=== PATIENT | female | born 1940 | race Caucasian/White ===

== ENCOUNTER 2017-05-09 14:21 | Emergency (ER) | payer OTHER, MEDICARE ==
[~2017-05-09] VITALS: Ht 170.2 cm; Wt 87.7 kg
[~2017-05-09 14:21] MED LIST: AMOX TR-K CLV PO; BACT800T5 PO; BUPR300T34 PO; COUM1TAB14 PO; COUM6TAB PO; DETR4CAP PO; DULC10SU2 PR; ESTRODERM PO; HYDR25TAB PO; KLOR1TAB77 PO; LEVO100T5 PO; METO50TA7 PO; SENO8.6T5 PO; SILV1CRE60 TOP; TYLE325T5 PO; VERA240T16 PO; WELLTAB40 PO
[2017-05-09] MEDS ORDERED: HYDR25TA6 PO (14:41)
[2017-05-09 16:33] VITALS: BP 143/69
--- NOTE | 2017-05-09 16:40 | REP ---
RIGHT RIB SERIES: Four views of the right ribs are performed and demonstrate no fracture or bone lesion. An accompanying view of the chest demonstrates no acute infiltrate, pleural effusion or pneumothorax. Two small metallic anchors are seen in the right proximal right humerus. Cardiomediastinal silhouette is unremarkable. IMPRESSION: No evidence of right rib fracture. Signed by Max Mckeon MD 05/10/2017 05:11 P
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
[2017-07-09] MEDS ORDERED: DITR1TAB2 PO (12:59)
[2017-07-09] MEDS ORDERED: POTA1TAB14 PO (12:59)
[2017-07-09] MEDS ORDERED: HYDR25TAB PO (12:59)
[2017-07-09] MEDS ORDERED: SENN8.6C PO (12:59)
[2017-07-09] MEDS ORDERED: LIPI20TA PO (13:01)
== END 2017-05-09 16:39 | disposition home or self-care (01) ==
LOC: M ED 16:28
DX: S20.211A Contusion of right front wall of thorax, initial encounter (principal); V43.52XA Car driver injured in collision with other type car in traffic accident, initial encounter; Y92.410 Unspecified street and highway as the place of occurrence of the external cause; Y93.9 Activity, unspecified; Y99.8 Other external cause status; I10 Essential (primary) hypertension; E03.9 Hypothyroidism, unspecified; F32.9 Major depressive disorder, single episode, unspecified; Z87.442 Personal history of urinary calculi; Z87.891 Personal history of nicotine dependence; Z79.899 Other long term (current) drug therapy

== ENCOUNTER 2017-07-16 11:41 | Outpatient (CLI) | payer MEDICARE, OTHER ==
[~2017-07-16] VITALS: Ht 170.2 cm; Wt 83.9 kg
[~2017-07-16 11:41] MED LIST changes: +DITR1TAB2 PO; +HYDR25TA6 PO; +LIPI20TA PO; +POTA1TAB14 PO; +SENN8.6C PO
[2017-07-16] MEDS ORDERED: PROPOFOL 200 MG/20 ML VIAL As Ordered ONE ×3 (11:43→12:39)
[2017-07-16] MEDS ORDERED: NS 1,000 ML IV ONE (12:00)
[2017-07-16] MEDS ORDERED: LIDOCAINE 2% INJ 100 MG/5 ML SDV (FOR ANES.) As Ordered ONE (13:10)
--- NOTE | 2017-07-16 13:26 | ROOR ---
Patient Name: Sarah Trammell Procedure Date: 07/16/2017 12:59 PM Date of : 1940 Age: 77 Room: [facility] Gender: Female Note Status: Finalized Procedure: Total Colonoscopy to Cecum + Cold Snare Polypectomy + Hemoclip Indications: Positive Cologuard test Providers: Glen Gambino MD Referring MD: Enrique Arriaga MD Requesting Provider: Medicines: Monitored Anesthesia Care Complications: No immediate complications. Procedure: Pre-Anesthesia Assessment: - The heart rate, respiratory rate, oxygen saturations, blood pressure, adequacy of pulmonary ventilation, and response to care were monitored throughout the procedure. The Colonoscope was introduced through the anus and advanced to the cecum, identified by appendiceal orifice and ileocecal valve. The colonoscopy was performed without difficulty. The patient tolerated the procedure well. The quality of the bowel preparation was excellent. Findings: The perianal and digital rectal examinations were normal. Non-bleeding internal hemorrhoids were found during retroflexion. The hemorrhoids were small and Grade I (internal hemorrhoids that do not prolapse). Multiple small and large-mouthed diverticula were found in the recto-sigmoid colon, sigmoid colon and descending colon. Two sessile polyps were found in the descending colon. The polyps were small in size. These polyps were removed with a cold snare. Resection and retrieval were complete. A medium polyp was found at 60 cm proximal to the anus. The polyp was sessile. The polyp was removed with a cold snare. Resection and retrieval were complete. To prevent bleeding after the polypectomy, one hemostatic clip was successfully placed (MR conditional). There was no bleeding at the end of the procedure. The exam was otherwise without abnormality on direct and retroflexion views. Impression: - Non-bleeding internal hemorrhoids. - Diverticulosis in the recto-sigmoid colon, in the sigmoid colon and in the descending colon. - Two small polyps in the descending colon, removed with a cold snare. Resected and retrieved. - One medium polyp at 60 cm proximal to the anus, removed with a cold snare. Resected and retrieved. Clip (MR conditional) was placed. - The examination was otherwise normal on direct and retroflexion views. - The exam was otherwise normal to the cecum. Recommendation: - Patient has a contact number available for emergencies. The signs and symptoms of potential delayed complications were discussed with the patient. Return to normal activities tomorrow. Written discharge instructions were provided to the patient. - High fiber diet. - Discharge patient to home. - Continue present medications. - Await pathology results. - Telephone GI clinic for pathology results in 1 week. - Return to referring physician. - Repeat colonoscopy for surveillance based on pathology results. - Check Portal Online for Path Results.([email or web address] - The findings and recommendations were discussed with the patient's family. Glen Gambino MD Glen Gambino MD 07/16/2017 1:26:29 PM This report has been signed electronically. Number of Addenda: 0 Note Initiated On: 07/16/2017 12:59 PM Estimated Blood Loss: Estimated blood loss: none.
[2017-07-16 13:40] VITALS: BP 154/71
== END 2017-07-16 13:55 | disposition home or self-care (01) ==
LOC: M OPP 11:41
PROVIDERS: ATTEND Internal Medicine Gastroenterology
DX: D12.4 Benign neoplasm of descending colon (principal); K64.0 First degree hemorrhoids; K57.30 Diverticulosis of large intestine without perforation or abscess without bleeding; I10 Essential (primary) hypertension; E78.00 Pure hypercholesterolemia, unspecified; E03.9 Hypothyroidism, unspecified; M19.90 Unspecified osteoarthritis, unspecified site; F41.9 Anxiety disorder, unspecified; F32.9 Major depressive disorder, single episode, unspecified; R00.0 Tachycardia, unspecified; Z79.899 Other long term (current) drug therapy; Z87.891 Personal history of nicotine dependence; Z87.410 Personal history of cervical dysplasia

== ENCOUNTER → 2018-04-12 | Outpatient (REF) | payer MEDICARE, OTHER | LOC: M LAB REF 15:34 | DX: L03.039 Cellulitis of unspecified toe (principal) | CPT/HCPCS: 87186 ==

== ENCOUNTER 2018-05-15 10:32 | Day surgery (SDC) | payer MEDICARE, OTHER ==
[~2018-05-15 10:32] MED LIST changes: +ACETAMINOPHEN 325 MG TAB PO; -AMOX TR-K CLV PO; -BACT800T5 PO; +BSS with VANC/TOB/EPI for EYE CASES IR; -BUPR300T34 PO; -COUM1TAB14 PO; -COUM6TAB PO; +CYCLOPENTOLATE 2% OPHTH SOLN 2ML BTL OS; -DETR4CAP PO; -DITR1TAB2 PO; -DULC10SU2 PR; -ESTRODERM PO; +HEALON DUET (HEALON 10MG/ML 0.55ML & HEALON ENDOCOAT 30MG/ML 0.85ML) As Ordered; -HYDR25TA6 PO; -HYDR25TAB PO; -KLOR1TAB77 PO; -LEVO100T5 PO; +LIDOCAINE 1% SDV 5 ML VIAL As Ordered; +LIDOCAINE 3.5 % 1ML OPHTH TOPICAL GEL OU; -LIPI20TA PO; -METO50TA7 PO; +MOXIFLOXACIN IN BSS 0.25MG/0.25ML INTRACAMERAL INJ (OR EYE ONLY)(J2280) As Ordered; +OFLOXACIN 0.3 % (OCUFLOX) OPTH SOL 5ML OS; +PHENYLEPHRINE 2.5% OPHTH SOL 2ML OS; +PHENYLEPHRINE HCL 10 % OPHTH. SOL 5ML OD; +PHENYLEPHRINE HCL 10 % OPHTH. SOL 5ML OS; -POTA1TAB14 PO; +POVIDONE-IODINE 5% OPHTH PREP SOL 30ML As Ordered; -SENN8.6C PO; -SENO8.6T5 PO; -SILV1CRE60 TOP; +TRIAMCINOLONE PRES FR 40 MG/ML 1ML(TRIESENCE)(OR EYE ONLY)(J3300 PER 1MG) As Ordered; +TROPICAMIDE 1% OPHTH SOLN 2ML OS; -TYLE325T5 PO; -VERA240T16 PO; -WELLTAB40 PO
[2018-05-15] MEDS: PHENYLEPHRINE 2.5% OPHTH SOL 2ML OD (11:23)
[2018-05-15] MEDS: CYCLOPENTOLATE 2% OPHTH SOLN 2ML BTL OD (11:23)
[2018-05-15] MEDS: OFLOXACIN 0.3 % (OCUFLOX) OPTH SOL 5ML OD (11:23)
[2018-05-15] MEDS: TROPICAMIDE 1% OPHTH SOLN 2ML OD (11:23)
[2018-05-15] MEDS: LIDOCAINE 3.5 % 1ML OPHTH TOPICAL GEL OU (11:23)
[2018-05-15] MEDS ORDERED: MIDAZOLAM INJ 2 MG/2 ML VIAL (J2250) As Ordered (12:25)
[2018-05-15] MEDS ORDERED: fentaNYL 100 MCG/2 ML INJECTION (J3010) As Ordered (12:25)
[2018-05-15] MEDS ORDERED: AcetaZOLAMIDE 500 MG ER CAP As Ordered (13:03)
[2018-05-15] MEDS: AcetaZOLAMIDE 500 MG ER CAP PO (13:05)
[2018-05-15] MEDS ORDERED: TRIMETHOBENZAMIDE 300 MG CAP PO (13:15)
== END 2018-05-15 13:24 | disposition home or self-care (01) ==
LOC: M SDC 10:32
DX: H25.9 Unspecified age-related cataract (principal); I10 Essential (primary) hypertension; E78.5 Hyperlipidemia, unspecified; E03.9 Hypothyroidism, unspecified; Z79.899 Other long term (current) drug therapy; F41.9 Anxiety disorder, unspecified; F43.29 Adjustment disorder with other symptoms
CPT/HCPCS: 66984

== ENCOUNTER 2018-06-05 09:23 | Day surgery (SDC) | payer MEDICARE, OTHER ==
[2018-06-05] MEDS: TRIAMCINOLONE PRES FR 40 MG/ML 1ML(TRIESENCE)(OR EYE ONLY)(J3300 PER 1MG) As Ordered (06:48)
[2018-06-05] MEDS: BSS with VANC/TOB/EPI for EYE CASES IR (07:00)
[~2018-06-05 09:23] MED LIST changes: -BSS with VANC/TOB/EPI for EYE CASES IR; -CYCLOPENTOLATE 2% OPHTH SOLN 2ML BTL OS; -HEALON DUET (HEALON 10MG/ML 0.55ML & HEALON ENDOCOAT 30MG/ML 0.85ML) As Ordered; -LIDOCAINE 1% SDV 5 ML VIAL As Ordered; -LIDOCAINE 3.5 % 1ML OPHTH TOPICAL GEL OU; -MOXIFLOXACIN IN BSS 0.25MG/0.25ML INTRACAMERAL INJ (OR EYE ONLY)(J2280) As Ordered; -OFLOXACIN 0.3 % (OCUFLOX) OPTH SOL 5ML OS; -PHENYLEPHRINE 2.5% OPHTH SOL 2ML OS; -PHENYLEPHRINE HCL 10 % OPHTH. SOL 5ML OD; -POVIDONE-IODINE 5% OPHTH PREP SOL 30ML As Ordered; -TRIAMCINOLONE PRES FR 40 MG/ML 1ML(TRIESENCE)(OR EYE ONLY)(J3300 PER 1MG) As Ordered; -TROPICAMIDE 1% OPHTH SOLN 2ML OS
[2018-06-05] MEDS: PHENYLEPHRINE 2.5% OPHTH SOL 2ML OS (10:15)
[2018-06-05] MEDS: TROPICAMIDE 1% OPHTH SOLN 2ML OS (10:16)
[2018-06-05] MEDS: LIDOCAINE 3.5 % 1ML OPHTH TOPICAL GEL OU (10:16)
[2018-06-05] MEDS: CYCLOPENTOLATE 2% OPHTH SOLN 2ML BTL OS (10:16)
[2018-06-05] MEDS: OFLOXACIN 0.3 % (OCUFLOX) OPTH SOL 5ML OS (10:16)
[2018-06-05] MEDS ORDERED: MIDAZOLAM INJ 2 MG/2 ML VIAL (J2250) As Ordered (11:12)
[2018-06-05] MEDS ORDERED: fentaNYL 100 MCG/2 ML INJECTION (J3010) As Ordered (11:12)
[2018-06-05] MEDS: POVIDONE-IODINE 5% OPHTH PREP SOL 30ML As Ordered (11:15)
[2018-06-05] MEDS: HEALON DUET (HEALON 10MG/ML 0.55ML & HEALON ENDOCOAT 30MG/ML 0.85ML) As Ordered (11:15)
[2018-06-05] MEDS: LIDOCAINE 1% SDV 5 ML VIAL As Ordered (11:15)
[2018-06-05] MEDS: MOXIFLOXACIN IN BSS 0.25MG/0.25ML INTRACAMERAL INJ (OR EYE ONLY)(J2280) As Ordered (11:16)
[2018-06-05] MEDS: AcetaZOLAMIDE 500 MG ER CAP PO (12:00)
[2018-06-05] MEDS ORDERED: TRIMETHOBENZAMIDE 300 MG CAP PO (12:00)
== END 2018-06-05 12:10 | disposition home or self-care (01) ==
LOC: M SDC 09:23
DX: H25.9 Unspecified age-related cataract (principal); I10 Essential (primary) hypertension; E78.5 Hyperlipidemia, unspecified; E03.9 Hypothyroidism, unspecified; Z79.899 Other long term (current) drug therapy; K59.00 Constipation, unspecified; M54.2 Cervicalgia; F32.9 Major depressive disorder, single episode, unspecified; F41.9 Anxiety disorder, unspecified
CPT/HCPCS: 66984

== ENCOUNTER → 2018-10-17 | Outpatient (REF) | payer MEDICARE, OTHER | LOC: M LAB REF 14:43 | DX: L03.032 Cellulitis of left toe (principal) ==

== ENCOUNTER → 2018-10-17 | Outpatient (CLI) | payer MEDICARE, OTHER ==
[2018-10-17 13:30] LABS: BASO # 0.1 10^3/uL (0.0-0.2); BASO % 0.8 % (0.0-1.0); EOS # 0.4 10^3/uL (0.0-0.50); EOS % 4.9 % (0.0-3.0); HEMOGLOBIN 12.9 g/dl (12.0-15.5); LYMPH # 2.1 10^3/uL (1.5-4.5); MEAN CORPUSCULAR HEMOGLOBIN 31.4 pg (27.0-33.0); MEAN CORPUSCULAR HGB CONC 33.1 g/dl (32.0-36.5); MEAN CORPUSCULAR VOLUME 94.9 fl (80.0-96.0); MONO # 0.6 10^3/uL (0.0-0.8); MONO % 8.3 % (0.0-5.0); PLATELET COUNT, AUTOMATED 199 10^3/uL (150-450); RED BLOOD COUNT 4.11 10^6/uL (4.00-5.40); RED CELL DISTRIBUTION WIDTH 12.9 % (11.5-14.5); WHITE BLOOD COUNT 7.2 10^3/uL (4.0-10.0)
[2018-10-17 14:10] LABS: ALBUMIN 3.5 GM/DL (3.2-5.2); ALBUMIN/GLOBULIN RATIO 0.71 (1.00-1.93); ALKALINE PHOSPHATASE 105 U/L (45-117); ALT/SGPT 20 U/L (12-78); ANION GAP 7 MEQ/L (8-16); AST/SGOT 17 U/L (7-37); BILIRUBIN,TOTAL 0.5 MG/DL (0.2-1.0); BLOOD UREA NITROGEN 17 MG/DL (7-18); CARBON DIOXIDE LEVEL 31 MEQ/L (21-32); CHLORIDE LEVEL 103 MEQ/L (98-107); CREATININE FOR GFR 1.45 MG/DL (0.55-1.30); GLOMERULAR FILTRATION RATE 37.4 (>39); GLUCOSE, FASTING 90 MG/DL (70-100); POTASSIUM SERUM 3.7 MEQ/L (3.5-5.1); SODIUM LEVEL 141 MEQ/L (136-145); TOTAL PROTEIN 8.4 GM/DL (6.4-8.2)
== END ==
LOC: M LAB 12:47
DX: Z01.818 Encounter for other preprocedural examination (principal); M79.675 Pain in left toe(s); L97.522 Non-pressure chronic ulcer of other part of left foot with fat layer exposed; M20.40 Other hammer toe(s) (acquired), unspecified foot; L03.032 Cellulitis of left toe
CPT/HCPCS: 71046

== ENCOUNTER 2018-10-22 14:11 | Day surgery (SDC) | payer MEDICARE, OTHER ==
[2018-10-22] MEDS: LR 1,000 ML IV (14:48)
[2018-10-22] MEDS: ROPIvacaine 0.5% 30 ML INJECTION (J2795 PER 1MG) As Ordered (17:09)
[2018-10-22] MEDS: GENTAMICIN SULF INJ 80MG/2ML VIAL (J1580) As Ordered (17:13)
[2018-10-22] MEDS ORDERED: LIDOCAINE 2% INJ 100 MG/5 ML SDV (FOR ANES.) As Ordered (17:34)
[2018-10-22] MEDS ORDERED: ONDANSETRON 4MG/2ML VIAL (J2405) As Ordered (17:34)
[2018-10-22] MEDS ORDERED: MIDAZOLAM INJ 2 MG/2 ML VIAL (J2250) As Ordered (17:34)
[2018-10-22] MEDS ORDERED: fentaNYL 100 MCG/2 ML INJECTION (J3010) As Ordered (17:34)
[2018-10-22] MEDS ORDERED: PROPOFOL 200 MG/20 ML VIAL As Ordered (17:35)
== END 2018-10-22 18:30 | disposition home or self-care (01) ==
LOC: M SDC 18:30
DX: M86.672 Other chronic osteomyelitis, left ankle and foot (principal); M79.675 Pain in left toe(s); I10 Essential (primary) hypertension; E03.9 Hypothyroidism, unspecified; F32.9 Major depressive disorder, single episode, unspecified; Z79.899 Other long term (current) drug therapy; Z87.891 Personal history of nicotine dependence; E78.5 Hyperlipidemia, unspecified; F41.9 Anxiety disorder, unspecified
CPT/HCPCS: 28825

== ENCOUNTER 2018-12-01 12:57 | Emergency (ER) | payer MEDICARE, OTHER ==
[~2018-12-01] VITALS: Ht 170.2 cm; Wt 79.0 kg
[~2018-12-01 12:57] MED LIST changes: -ACETAMINOPHEN 325 MG TAB PO; +AMOX TR-K CLV PO; +AUGM875T28 PO; +BACT800T5 PO; +BUPR300T34 PO; +COUM1TAB14 PO; +COUM6TAB PO; +DETR4CAP PO; +DITR1TAB2 PO; +DULC10SU2 PR; +ESTRODERM PO; +HYDR25TA6 PO; +HYDR25TAB PO; +KLOR1TAB77 PO; +LEVO100T5 PO; +LIPI20TA PO; +METO50TA7 PO; +OXYB15TA PO; -PHENYLEPHRINE HCL 10 % OPHTH. SOL 5ML OS; +POTA1TAB14 PO; +SENN8.6C PO; +SENO8.6T5 PO; +SILV1CRE60 TOP; +TYLE325T5 PO; +VERA240T16 PO; +WELLTAB40 PO
[2018-12-01] MEDS: MORPHINE 2 MG/ML 1ML SYRINGE (J2270) IV PRN ×2 (13:32→14:46)
[2018-12-01] MEDS ORDERED: ADACEL/BOOSTRIX VACCINE (DIPHTH/PERTUSS/ACELL/TETANUS)0.5ML SYR (90715) IM ONE (13:45)
--- NOTE | 2018-12-01 13:52 | REP ---
CT brain without contrast: History: Trauma. Comparison study: December 23, 2010. Findings: Digital preliminary unit director radiograph shows an intact bony calvarium. Bone window settings show no visible skull fracture or bony destructive lesion. Paranasal sinuses are clear. Vascular calcification is noted in the carotids and vertebral arteries. There is a right posterior parietal scalp hematoma with soft tissue irregularity suggesting laceration. On soft tissue window settings, there is an acute subdural collection at the level of the scalp hematoma in the right high parietal region. This measures 10 mm in greatest thickness by 6.5 cm in anteroposterior dimension. This is associated with a small quantity of subarachnoid hemorrhage extending into the sylvian fissure on the right. There is some subarachnoid hemorrhage in the occipital lobe on the right as well. No parenchymal hematoma is seen. No infarct is seen. Small vessel atherosclerotic changes are noted. Impression: Small right parietal acute subdural hematoma associated with a small quantity of subarachnoid blood in the right occipital lobe and along the Sylvian fissure on the right side. No skull fracture is seen. There is a right scalp hematoma/laceration. Vascular calcification, diffuse atrophy and small vessel changes are also noted. Findings were discussed at the time of this dictation by telephone with Dr. Cagle. Electronically Signed by Eliezer Lange MD 12/01/2018 03:50 P
--- NOTE | 2018-12-01 13:53 | REP ---
CT study of the cervical spine without contrast: History: Trauma. Technique: Helical scanning is acquired and overlapping 2 mm high resolution axial images were generated and reviewed at bone and soft tissue window settings. Coronal and sagittal multiplanar re-formations images are generated. CT findings: There is no evidence of cervical spine element fracture. No skull base fracture is seen. Cervical vertebral body heights are preserved. Alignment is normal. Facet joints are normally aligned bilaterally at each cervical level on multiplanar re-formations images. There is no evidence of intraspinal or paraspinal hematoma. No extra vertebral abnormality is seen. There is straightening of the normal cervical lordosis. Moderate degenerative spondylosis changes are noted throughout the cervical spine. Degenerative disc changes are most pronounced at C3-4, C5-6 and C6-7. Vascular calcification is noted in the carotid arteries bilaterally. Impression: Advanced degenerative spondylosis changes. Otherwise negative CT study of the cervical spine without contrast. No fracture seen. Electronically Signed by Eliezer Lange MD 12/01/2018 03:53 P
[2018-12-01 14:16] LABS: HEMATOCRIT 33.7 % (36.0-47.0); HEMOGLOBIN 11.1 g/dl (12.0-15.5); MEAN CORPUSCULAR HEMOGLOBIN 30.2 pg (27.0-33.0); MEAN CORPUSCULAR HGB CONC 32.9 g/dl (32.0-36.5); MEAN CORPUSCULAR VOLUME 91.6 fl (80.0-96.0); PLATELET COUNT, AUTOMATED 163 10^3/uL (150-450); RED BLOOD COUNT 3.68 10^6/uL (4.00-5.40); WHITE BLOOD COUNT 8.1 10^3/uL (4.0-10.0)
[2018-12-01 14:25] LABS: INR 1.21; PROTHROMBIN TIME 15.5 SECONDS (12.1-14.4)
--- NOTE | 2018-12-01 14:34 | REP ---
Left hand series: Four views. History: Trauma. Findings: Four views of the left hand demonstrate diffuse osteopenia. There is chondrocalcinosis. There is diastases between the navicula and the lunate indicating degeneration of the navicular lunate ligament. There is osteoarthritis at the first carpometacarpal, navicular multangular, and first IP joint articulations. There is a flexion deformity at the DIP joint of the small finger. Osteoarthritic spurring is seen at the DIP joints of the index and long fingers as well. Impression: No acute fracture seen. Osteoarthritic changes, degenerative changes, and flexion deformity at the fifth finger DIP joint. Electronically Signed by Eliezer Lange MD 12/01/2018 02:26 P
[2018-12-01 14:54] VITALS: BP 155/72
[2018-12-01 14:56] LABS: ALBUMIN 3.1 GM/DL (3.2-5.2); BILIRUBIN,TOTAL 0.6 MG/DL (0.2-1.0); CALCIUM LEVEL 8.8 MG/DL (8.8-10.2); CREATININE FOR GFR 1.2 MG/DL (0.55-1.30); GLOMERULAR FILTRATION RATE 46.5 (>39); POTASSIUM SERUM 3.3 MEQ/L (3.5-5.1); TOTAL PROTEIN 7.4 GM/DL (6.4-8.2)
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
--- NOTE | 2018-12-02 06:08 | REP ---
Portable chest x-ray: Sitting AP view. History: Preoperative exam. Comparison study: October 17, 2018. Findings: There are orthopedic anchors in the right humeral head. The lungs are slightly hyperinflated consistent with some degree of COPD but clear. Pleural angles are sharp. Heart size normal. The thoracic aorta is calcific and somewhat tortuous. Pulmonary vasculature is not increased. Impression: No active disease. Electronically Signed by Eliezer Lange MD 12/02/2018 08:10 A
== END 2018-12-01 14:57 | disposition short-term general hospital (02) ==
LOC: M ED 12:57 → EDBD 12:57 → M ED 14:57
DX: I60.9 Nontraumatic subarachnoid hemorrhage, unspecified (principal); I62.00 Nontraumatic subdural hemorrhage, unspecified; W10.8XXA Fall (on) (from) other stairs and steps, initial encounter; Y92.018 Other place in single-family (private) house as the place of occurrence of the external cause; I12.9 Hypertensive chronic kidney disease with stage 1 through stage 4 chronic kidney disease, or unspecified chronic kidney disease; N18.9 Chronic kidney disease, unspecified; E07.9 Disorder of thyroid, unspecified; F33.9 Major depressive disorder, recurrent, unspecified; Z79.899 Other long term (current) drug therapy; Z79.890 Hormone replacement therapy; Z87.891 Personal history of nicotine dependence
CPT/HCPCS: 70450; 71045; 72125; 73130; 73502; 73590; 80053; 85027; 85610; 86850; 86900; 86901; 90471; 90715; 96374; 96376; 99284; J2270

== ENCOUNTER 2019-01-19 22:25 | Emergency (ER) | payer MEDICARE, OTHER ==
[~2019-01-19] VITALS: Ht 170.2 cm; Wt 77.3 kg
[2019-01-19] MEDS ORDERED: ACETAMINOPHEN 325 MG TAB PO ONE (22:45)
[2019-01-19] MEDS ORDERED: CENT1TAB PO (23:07)
[2019-01-19] MEDS ORDERED: METO1TAB7 PO (23:07)
[2019-01-19] MEDS ORDERED: VERA24TASA PO (23:07)
[2019-01-19 23:19] LABS: BASO % 0.3 % (0.0-1.0); EOS % 0.4 % (0.0-3.0); HEMOGLOBIN 11.6 g/dl (12.0-15.5); LYMPH # 0.3 10^3/uL (1.5-4.5); LYMPH % 2.8 % (24.0-44.0); MEAN CORPUSCULAR HEMOGLOBIN 30.9 pg (27.0-33.0); MEAN CORPUSCULAR HGB CONC 33.1 g/dl (32.0-36.5); MEAN CORPUSCULAR VOLUME 93.1 fl (80.0-96.0); MONO # 0.6 10^3/uL (0.0-0.8); MONO % 5.7 % (0.0-5.0); NEUTROPHILS # 9.6 10^3/uL (1.8-7.7); NEUTROPHILS % 90.4 % (36.0-66.0); PLATELET COUNT, AUTOMATED 145 10^3/uL (150-450); RED BLOOD COUNT 3.76 10^6/uL (4.00-5.40); WHITE BLOOD COUNT 10.7 10^3/uL (4.0-10.0)
[2019-01-19] MEDS ORDERED: NS 500 ML IV ONE (23:30)
[2019-01-19 23:40] LABS: ALBUMIN 3.7 GM/DL (3.2-5.2); BILIRUBIN,DIRECT 2.2 MG/DL (0.0-0.2); BILIRUBIN,TOTAL 3.1 MG/DL (0.2-1.0); CALCIUM LEVEL 8.5 MG/DL (8.8-10.2); CREATININE FOR GFR 1.3 MG/DL (0.55-1.30); GLOMERULAR FILTRATION RATE 42.4 (>39); POTASSIUM SERUM 3.7 MEQ/L (3.5-5.1); TOTAL PROTEIN 7.8 GM/DL (6.4-8.2)
[2019-01-20 00:02] LABS: THYROID STIMULATING HORMONE 8.08 uIU/ML (0.358-3.740); THYROXINE (T4) 8.3 UG/DL (4.5-12.0)
[2019-01-20 00:04] LABS: APPEARANCE, URINE HAZY (CLEAR); BACTERIA, URINE AUTO 2+ (NEGATIVE); BILIRUBIN, URINE AUTO NEGATIVE (NEGATIVE); BLOOD, URINE BLOOD NEGATIVE (NEGATIVE); COLOR, URINE AMBER (YELLOW); GLUCOSE, URINE (UA) AUTO NEGATIVE (NEGATIVE); KETONE, URINE AUTO NEGATIVE (NEGATIVE); LEUKOCYTE ESTERASE, URINE AUTO NEGATIVE (NEGATIVE); MUCUS, URINE SMALL (NEGATIVE); NITRITE, URINE AUTO POSITIVE (NEGATIVE); PROTEIN, URINE AUTO NEGATIVE (NEGATIVE); RBC, URINE AUTO 0 /HPF (0-3); SPECIFIC GRAVITY URINE AUTO 1.018 (1.002-1.035); SQUAMOUS EPITHELIAL CELL UR AU 2 /HPF (0-6); TRANSITIONAL EPITHELIAL AUTO <1 /HPF; WBC, URINE AUTO 2 /HPF (0-3)
[2019-01-20 00:13] LABS: INFLUENZA A AMPLIFICATION NEGATIVE (NEGATIVE); INFLUENZA B AMPLIFICATION NEGATIVE (NEGATIVE)
--- NOTE | 2019-01-20 00:17 | REPVR ---
EXAM: CT Head Without Contrast EXAM DATE/TIME: 01/19/2019 11:42 PM CLINICAL HISTORY: 78 years old, female; Evaluate post subdural of 12/07 TECHNIQUE: Axial computed tomography images of the head/brain without contrast. All CT scans at this facility use at least one of these dose optimization techniques: automated exposure control; mA and/or kV adjustment per patient size (includes targeted exams where dose is matched to clinical indication); or iterative reconstruction. COMPARISON: CT Head without contrast 12/01/2018 1:12 PM FINDINGS: Brain: There is a subdural fluid collection along the left frontoparietal convexity with mixed high and low attenuation components measuring up to 10 mm in depth, which has developed since the prior CT scan on 12/01/2018. There is a small residual high attenuation right frontal subdural hemorrhage measuring up to 4 mm in depth, which has decreased in size compared to the prior CT scan on 12/01/2018. The subarachnoid hemorrhage in the right sylvian fissure and sulci of the right occipital lobe has resolved since the prior CT scan on 12/01/2018. There are non-specific foci of low attenuation in the periventricular and subcortical white matter, which are likely the sequela of chronic small vessel ischemic injury and are similar in appearance compared to the prior CT scan on 12/01/2018. Brainstem: Unremarkable. Midline shift: There is no midline shift. Ventricles: The ventricles are mildly dilated in proportion to the sulci, which is compatible with mild generalized cerebral volume loss that is similar in appearance compared to the prior CT scan on 12/01/2018. Bones/joints: Unremarkable. No acute fracture. Sinuses: Visualized sinuses are unremarkable. No acute sinusitis. Mastoid air cells: Visualized mastoid air cells are unremarkable. No mastoid effusion. Soft tissues: Unremarkable. IMPRESSION: 1. 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 No midline shift or herniation. 2. Small residual right subdural hematoma along the right frontal convexity, which has decreased in size since the prior CT scan on 12/01/2018. Electronically signed by: Albin Turk On 01/20/2019 00:16:30 AM
[2019-01-20] MEDS ORDERED: ISOVUE-370 76% 100ML VIAL (Q9967) As Ordered ONE (00:31)
--- NOTE | 2019-01-20 01:23 | REP ---
Clinical: Systemic inflammatory response syndrome . Comparison: 12/01/2018 . Findings: The mediastinum and cardiac silhouette are stable and within normal limits for portable technique. The lung catalan are clear without acute consolidation, effusion, or pneumothorax. Skeletal structures are intact. Impression: No acute cardiopulmonary process appreciated. Electronically Signed by Zachary Aguila MD 01/20/2019 01:14 A
--- NOTE | 2019-01-20 01:28 | REPVR ---
EXAM: CT Abdomen and Pelvis With Contrast EXAM DATE/TIME: 01/20/2019 12:48 AM CLINICAL HISTORY: 78 years old, female; Abdominal pain; Chemically cholangitis/fever TECHNIQUE: Axial computed tomography images of the abdomen and pelvis with intravenous contrast. All CT scans at this facility use at least one of these dose optimization techniques: automated exposure control; mA and/or kV adjustment per patient size (includes targeted exams where dose is matched to clinical indication); or iterative reconstruction. Coronal and sagittal reformatted images were created and reviewed. CONTRAST: Contrast Material: 100 ml of ISO 370; Contrast Route: IV COMPARISON: CR Hip,AP,LAT to include Pelvis 12/01/2018 1:47 PM SR - Chest, 2 view PA, Lat 10/17/2018 1:36:07 PM Abdomen, limited US 05/09/2017 3:55:32 PM FINDINGS: Lower thorax: Unremarkable. ABDOMEN: Liver: The attenuation of the liver is more than 40 Hounsfield units lower in attenuation compared to the spleen, which is compatible with fatty liver infiltration. No liver lesion is seen. The contour of the liver is smooth. The liver is enlarged and measures 18.7 cm in craniocaudal dimension at the level of the right midclavicular line. No abscess is noted in the liver. Gallbladder and bile ducts: There is some high attenuation material layering in the dependent portion of the body of the gallbladder (image 53 of the sagittal series 203 and image 48 of the axial series 201), which may represent biliary sludge or calculi. No gallbladder wall thickening, pericholecystic fluid, or pericholecystic inflammatory changes are identified. No dilation of the intrahepatic bile ducts is noted. The common bile ducts is dilated and measures 8 mm in diameter at the level of the addie hepatis but tapers to a normal caliber of 4 mm in diameter at the level of the head of the pancreas. There is high attenuation material in the distal portion of the common bile duct (images 46-47 of the coronal series 202), which may represent biliary sludge or choledocholithiasis. Pancreas: Normal. No ductal dilation. Spleen: Normal. No splenomegaly is noted. Adrenals: There is thickening of the adrenal glands, left greater than right, which may indicate adrenal hyperplasia. Kidneys and ureters: There is a 15 mm exophytic lesion arising from the inferior pole of the left kidney, which measures 30 Hounsfield units. There is a 10 mm exophytic simple cyst arising from the superior pole of the left kidney. Bilateral renal cortical scarring is noted. No stones are noted in the kidneys or ureters. There is no hydronephrosis or hydroureter. Stomach and bowel: The stomach and small bowel are unremarkable. The colon is diffusely decompressed, limiting its optimal evaluation. There is a diffusely thickened appearance of the wall of the colon, which may be secondary is to its decompressed state versus a colitis. However, no pericolonic inflammatory fat stranding is noted. No diverticulitis, bowel obstruction, pneumatosis intestinalis, volvulus, or intussusception is noted. Appendix: The appendix is not identified and may have been removed. No dilated blind ending tubular structure, inflammatory fat stranding, or fluid is noted in the expected location of the appendix. PELVIS: Bladder: The partially distended urinary bladder is unremarkable. No stones or masses are seen in the bladder. Reproductive: There has been a hysterectomy. The uterus and ovaries are not identified. ABDOMEN and PELVIS: Intraperitoneal space: Normal. No free air. No fluid collection. Bones/joints: There is an acute or subacute anterior wedge compression fracture of T12, which has developed since the prior chest x-ray on 10/17/2018 and is a visible radiolucent fracture line in the T12 vertebral body that does not extend into the pedicles and there is 4 mm of retropulsion of the superior endplate of T12, but no significant spinal canal stenosis at the level of the retropulsion. Orthopedic fixation hardware is noted fixating a healed left intertrochanteric fracture in satisfactory alignment. The bones have a demineralized appearance. No suspicious osteolytic or osteoblastic lesion is noted. There are degenerative changes in the lumbar spine. There is a grade 1 anterolisthesis of L4 on L5 secondary to severe osteoarthritis of the L4-L5 facet joints. Soft tissues: Unremarkable. Vasculature: The abdominal aorta is normal in caliber. There are extensive atherosclerotic calcifications. The celiac artery, superior mesenteric artery, and inferior mesenteric artery are patent. There are moderate calcifications of the origin of the right single main renal artery. Mild calcifications are noted at the origins of the 2 main left renal arteries The renal veins, hepatic veins, portal veins, splenic vein, superior mesenteric vein, and inferior mesenteric vein are patent. Lymph nodes: Normal. No enlarged lymph nodes. IMPRESSION: 1. High attenuation material layering in the dependent portion of the body of the gallbladder, which may represent biliary sludge or calculi. 2. High attenuation material in the distal portion of the common bile duct, which may represent biliary sludge or choledocholithiasis. Mild dilation of the common bile duct (8 mm). No intrahepatic biliary ductal dilation. 3. Enlarged, fatty liver. 4. Diffusely thickened appearance of the wall the colon, which may be secondary to its decompressed state versus a colitis. However, no pericolonic inflammatory changes are noted. 5. 15 mm indeterminate exophytic lesion arising from the inferior pole of the left kidney. A renal ultrasound is recommended for further evaluation. 6. Acute or subacute anterior wedge compression fracture of T12, with retropulsion of the superior cortex by 4 mm but without any significant spinal canal stenosis at the level of the retropulsion, which has developed since the prior chest x-ray on 10/17/2018. COMMENT: Consistent with the [employer] Incidental Findings Committee Report (J Am Willa Radiol 2010): Unless the patients specific circumstances suggest otherwise, any liver lesion 0.5 cm or less, any cystic kidney lesion less than 1.0 cm, and/or any adrenal lesion 1.0 cm or less not otherwise characterized in this report as possessing suspicious or indeterminate imaging features is/are highly likely to be benign and do not require follow-up imaging or biopsy. Electronically signed by: Albin Turk On 01/20/2019 01:28:31 AM
[2019-01-20] MEDS ORDERED: cefTRIAXone SOD 2 GM in D5W MINI-BAG PLUS 50 ML IV ONE (01:45)
[2019-01-20 02:30] VITALS: BP 118/54
[2019-01-20] MEDS ORDERED: NS 1,000 ML IV SCH (03:00)
== END 2019-01-20 02:56 | disposition short-term general hospital (02) ==
LOC: EDBD 22:25 → M ED 22:25
DX: I62.03 Nontraumatic chronic subdural hemorrhage (principal); K83.09 Other cholangitis; I10 Essential (primary) hypertension; E78.5 Hyperlipidemia, unspecified; Z79.899 Other long term (current) drug therapy
CPT/HCPCS: 36415; 51701; 70450; 71045; 74177; 80048; 80076; 81001; 83605; 84436; 84443; 84479; 85025; 87040; 87088; 87186; 87502; 93041; 94760; 99285; J0696; Q9967

== ENCOUNTER → 2021-07-21 | Outpatient (CLI) | payer MEDICARE, OTHER ==
[~2021-07-21] MED LIST changes: -BUPR300T34 PO; +BUPR300T92 PO; +CENT1TAB PO; -COUM1TAB14 PO; +COUM4TAB8 PO; -COUM6TAB PO; +COUM6TAB10 PO; +HYDR-2541 PO; +HYDR-3490 PO; -HYDR25TAB PO; +METO1TAB7 PO; -OXYB15TA PO; +OXYB15TA14 PO; +VERA240T65 PO
== END ==
LOC: M PLAIMG 11:36
PROVIDERS: ATTEND Physical Medicine & Rehabilitation
DX: M50.320 Other cervical disc degeneration, mid-cervical region, unspecified level (principal); G24.3 Spasmodic torticollis

== ENCOUNTER → 2022-08-11 | Outpatient (CLI) | payer MEDICARE, OTHER | LOC: M PLAIMG 10:28 | PROVIDERS: ATTEND Family Medicine | DX: R31.9 Hematuria, unspecified (principal) ==

== ENCOUNTER → 2022-09-11 | Outpatient (REF) | payer MEDICARE, OTHER | LOC: M LAB REF 16:44 | PROVIDERS: ATTEND Podiatrist | DX: M79.671 Pain in right foot (principal) ==

== ENCOUNTER → 2022-11-02 | Outpatient (REF) | payer MEDICARE, OTHER ==
[2022-11-02 17:57] LABS: CREATININE, URINE 162.6 MG/DL
[2022-11-02 17:58] LABS: MAU/CREAT RATIO 21.5 MCG/MG (0.0-30.0)
== END ==
LOC: M LAB REF 16:51
PROVIDERS: ATTEND Internal Medicine Nephrology
DX: R80.9 Proteinuria, unspecified (principal); N18.9 Chronic kidney disease, unspecified

== ENCOUNTER → 2023-02-15 | Outpatient (REF) | payer MEDICARE, OTHER | LOC: M LAB REF 16:48 | PROVIDERS: ATTEND Podiatrist | DX: L03.031 Cellulitis of right toe (principal) ==

== ENCOUNTER 2023-05-23 17:40 | Emergency (ER) | payer MEDICARE, OTHER ==
[~2023-05-23] VITALS: Ht 170.2 cm; Wt 81.8 kg
[~2023-05-23 17:40] MED LIST changes: +POTA-298 PO; -POTA1TAB14 PO
[2023-05-23 18:02] VITALS: TEMP 100.5
[2023-05-23] MEDS ORDERED: ACETAMINOPHEN TAB 650MG DOSE (2X325MG) PO ONE (18:30)
[2023-05-23 19:11] VITALS: BP 153/77; O2SAT 96
[2023-05-23 19:11] LABS: BASO % 0.4 % (0.0-1.0); EOS % 0.1 % (0.0-3.0); HEMATOCRIT 35.6 % (36.0-47.0); HEMOGLOBIN 11.8 g/dl (12.0-15.5); LYMPH # 1.2 10^3/uL (1.5-5.0); LYMPH % 13.4 % (24.0-44.0); MEAN CORPUSCULAR HEMOGLOBIN 31.1 pg (27.0-33.0); MEAN CORPUSCULAR HGB CONC 33.1 g/dl (32.0-36.5); MEAN CORPUSCULAR VOLUME 93.7 fl (80.0-96.0); MONO # 1.2 10^3/uL (0.0-0.8); MONO % 13.4 % (2.0-8.0); NEUTROPHILS # 6.6 10^3/uL (1.5-8.5); NEUTROPHILS % 72.3 % (36.0-66.0); PLATELET COUNT, AUTOMATED 151 10^3/uL (150-450); WHITE BLOOD COUNT 9.2 10^3/uL (4.0-10.0)
[2023-05-23 19:18] LABS: ERYTHROCYTE SEDIMENTATION RATE 119 mm/hr (0-30)
[2023-05-23 19:26] LABS: C REACTIVE PROTEIN QUANTITATIV 14.3 MG/DL (<1.0); CALCIUM LEVEL 8.5 MG/DL (8.3-10.6); CREATININE FOR GFR 1.45 MG/DL (0.55-1.30); GLOMERULAR FILTRATION RATE 36.9 (>32); POTASSIUM SERUM 3.5 MMOL/L (3.5-5.1)
[2023-05-23] MEDS ORDERED: MEDR4PAK PO (20:14)
[2023-05-23] MEDS ORDERED: predniSONE 10MG TAB PO ONE (20:15)
[2023-05-29] MEDS ORDERED: KCL 10MEQ/100ML SWI (KRUN) 10 MEQ in IV 1 EA IV SCH (05:00)
[2023-05-29] MEDS ORDERED: DOCUSATE SODIUM 100MG CAPSULE PO SCH (09:00)
[2023-06-01] MEDS ORDERED: propofoL 200 MG/20 ML VIAL As Ordered ONE (17:49)
[2023-06-01] MEDS ORDERED: fentaNYL 100 MCG/2 ML INJECTION As Ordered ONE (17:50)
[2023-06-01] MEDS ORDERED: LIDOCAINE 2% MDV 20ML VIAL As Ordered ONE (17:54)
[2023-06-01] MEDS ORDERED: GENTAMICIN SULF 80MG/2ML VIAL As Ordered ONE (18:42)
== END 2023-05-23 20:55 | disposition home or self-care (01) ==
LOC: M ED 17:40 → EDBD 17:40 → M ED 20:55
DX: M19.071 Primary osteoarthritis, right ankle and foot (principal); M19.072 Primary osteoarthritis, left ankle and foot; I12.9 Hypertensive chronic kidney disease with stage 1 through stage 4 chronic kidney disease, or unspecified chronic kidney disease; N18.30 Chronic kidney disease, stage 3 unspecified; F32.A Depression, unspecified; Z79.899 Other long term (current) drug therapy
CPT/HCPCS: 73630; 80048; 83605; 85025; 85652; 86140; 87040; 96365; 99284; J7512

== ENCOUNTER 2023-05-28 19:47 | Inpatient (IN) | payer MEDICARE, OTHER ==
[~2023-05-28] VITALS: Ht 170.2 cm; Wt 82.5 kg
[~2023-05-28 19:47] MED LIST changes: +MEDR4PAK PO
[2023-05-28] MEDS ORDERED: NS 1,000 ML IV ONE (20:20)
[2023-05-28] MEDS ORDERED: ACETAMINOPHEN TAB 650MG DOSE (2X325MG) PO ONE (20:20)
[2023-05-28 20:33] LABS: BASO % 0.1 % (0.0-1.0); EOS % 0.1 % (0.0-3.0); HEMATOCRIT 33.9 % (36.0-47.0); HEMOGLOBIN 11.2 g/dl (12.0-15.5); LYMPH # 0.6 10^3/uL (1.5-5.0); LYMPH % 4.5 % (24.0-44.0); MEAN CORPUSCULAR HEMOGLOBIN 30.7 pg (27.0-33.0); MEAN CORPUSCULAR VOLUME 92.9 fl (80.0-96.0); MONO # 1.5 10^3/uL (0.0-0.8); MONO % 10.2 % (2.0-8.0); NEUTROPHILS # 12.1 10^3/uL (1.5-8.5); NEUTROPHILS % 84.4 % (36.0-66.0); PLATELET COUNT, AUTOMATED 168 10^3/uL (150-450); RED BLOOD COUNT 3.65 10^6/uL (4.00-5.40); WHITE BLOOD COUNT 14.4 10^3/uL (4.0-10.0)
[2023-05-28 20:45] LABS: THYROID STIMULATING HORMONE 0.522 uIU/ML (0.55-4.78)
[2023-05-28 20:52] LABS: ALBUMIN 2.8 G/DL (3.2-5.2); BILIRUBIN,DIRECT 0.2 MG/DL (<0.4); BILIRUBIN,TOTAL 0.6 MG/DL (0.3-1.2); CALCIUM LEVEL 7.6 MG/DL (8.3-10.6); CREATININE FOR GFR 1.2 MG/DL (0.55-1.30); GLOMERULAR FILTRATION RATE 45.9 (>32); POTASSIUM SERUM 2.9 MMOL/L (3.5-5.1); TOTAL PROTEIN 6.6 G/DL (5.7-8.2)
[2023-05-29] MEDS ORDERED: UNRESOLVED CLARIFICATION ENTRY XX SCH (00:01)
[2023-05-29] MEDS ORDERED: POTASSIUM CHLORIDE 10MEQ SR TABLET PO ONE (01:20)
[2023-05-29 02:47] LABS: MAGNESIUM LEVEL 1.6 MG/DL (1.8-2.4)
[2023-05-29] MEDS ORDERED: MOM 30ML SUSPENSION UDC PO PRN (05:05)
[2023-05-29] MEDS ORDERED: MEDR4TAB PO (06:00)
[2023-05-29] MEDS ORDERED: POTA10CA60 PO (06:03)
[2023-05-29] MEDS ORDERED: ALLO10TA PO (06:03)
[2023-05-29] MEDS ORDERED: VITMTA PO (06:03)
[2023-05-29] MEDS ORDERED: OXYB10TA23 PO (06:03)
[2023-05-29] MEDS ORDERED: VERA240T64 PO (06:03)
[2023-05-29] MEDS ORDERED: HOME MED LIST COMPLETE! XX SCH (06:05)
[2023-05-29] MEDS: KCL 10MEQ/100ML SWI (KRUN) 10 MEQ in IV 1 EA IV SCH ×4 (06:14→10:10)
[2023-05-29] MEDS: cefTRIAXone SOD 1 GM in D5W MINI-BAG PLUS 50 ML IV SCH (06:14)
[2023-05-29 07:00] VITALS: BP 167/77; TEMP 97.2; O2SAT 96
[2023-05-29 07:18] LABS: BASO % 0.1 % (0.0-1.0); EOS % 0.1 % (0.0-3.0); HEMATOCRIT 34.6 % (36.0-47.0); HEMOGLOBIN 11.4 g/dl (12.0-15.5); LYMPH # 0.5 10^3/uL (1.5-5.0); LYMPH % 4.1 % (24.0-44.0); MEAN CORPUSCULAR HEMOGLOBIN 30.3 pg (27.0-33.0); MEAN CORPUSCULAR HGB CONC 32.9 g/dl (32.0-36.5); MONO # 0.8 10^3/uL (0.0-0.8); MONO % 7.1 % (2.0-8.0); NEUTROPHILS # 10.4 10^3/uL (1.5-8.5); PLATELET COUNT, AUTOMATED 153 10^3/uL (150-450); RED BLOOD COUNT 3.76 10^6/uL (4.00-5.40); WHITE BLOOD COUNT 11.9 10^3/uL (4.0-10.0)
[2023-05-29 08:01] LABS: CALCIUM LEVEL 8.2 MG/DL (8.3-10.6); CREATININE FOR GFR 1.22 MG/DL (0.55-1.30); FREE T4 0.74 NG/DL (0.89-1.76); POTASSIUM SERUM 3.1 MMOL/L (3.5-5.1)
[2023-05-29] MEDS: DOCUSATE SODIUM 100MG CAPSULE PO SCH ×2 (09:03→21:05)
[2023-05-29] MEDS: ACETAMINOPHEN TAB 650MG DOSE (2X325MG) PO PRN ×2 (09:04→15:19)
[2023-05-29] MEDS ORDERED: POTASSIUM CHLORIDE 10MEQ SR TABLET PO SCH (12:40)
[2023-05-29 13:17] LABS: TOTAL T3 18.4 NG/DL (60.0-181.0)
[2023-05-29] MEDS: allopurinoL 100 MG TAB PO SCH (13:32)
[2023-05-29] MEDS: LEVOTHYROXINE 100MCG TABLET (0.1MG) PO SCH (13:32)
[2023-05-29] MEDS: buPROPion **XL** TABLET 150MG (WELLBUTRIN XL) PO SCH (13:33)
[2023-05-29] MEDS: oxyBUTYnin *DITROPAN XL* 5 MG TABCR PO SCH (13:33)
[2023-05-29] MEDS: MULTIVITAMINS/MINERALS THERAP 1 TAB PO SCH (13:34)
[2023-05-29] MEDS: ATORVASTATIN 20 MG TAB PO SCH (13:34)
[2023-05-29] MEDS: METOPROLOL SUCC (TopROL XL) 50MG **XL** TAB PO SCH (13:34)
[2023-05-29 14:00] VITALS: BP 130/62; TEMP 97.9; O2SAT 96
[2023-05-29] MEDS: VERAPAMIL 120MG SR TAB PO SCH (15:17)
[2023-05-29] MEDS: HEPARIN SOD (PORCINE) 5000UNITS/ML 1ML VIAL/SYRINGE SC SCH ×2 (15:18→21:05)
[2023-05-29] MEDS ORDERED: LIDOCAINE 5% (LIDODERM) PATCH TD ONE (19:25)
[2023-05-29 22:00] VITALS: BP 127/50; TEMP 97.7; O2SAT 95
[2023-05-30 05:31] VITALS: BP 154/61; TEMP 98.3; O2SAT 94
[2023-05-30] MEDS: LEVOTHYROXINE 100MCG TABLET (0.1MG) PO SCH (05:40)
[2023-05-30] MEDS: cefTRIAXone SOD 1 GM in D5W MINI-BAG PLUS 50 ML IV SCH (05:40)
[2023-05-30] MEDS: HEPARIN SOD (PORCINE) 5000UNITS/ML 1ML VIAL/SYRINGE SC SCH ×3 (05:41→21:18)
[2023-05-30] MEDS: ACETAMINOPHEN TAB 650MG DOSE (2X325MG) PO PRN ×3 (05:41→16:38)
[2023-05-30 06:17] LABS: BASO % 0.1 % (0.0-1.0); EOS # 0.1 10^3/uL (0.0-0.5); EOS % 0.5 % (0.0-3.0); HEMATOCRIT 33.5 % (36.0-47.0); HEMOGLOBIN 11.1 g/dl (12.0-15.5); LYMPH # 0.6 10^3/uL (1.5-5.0); LYMPH % 6.3 % (24.0-44.0); MEAN CORPUSCULAR HEMOGLOBIN 30.6 pg (27.0-33.0); MEAN CORPUSCULAR HGB CONC 33.1 g/dl (32.0-36.5); MEAN CORPUSCULAR VOLUME 92.3 fl (80.0-96.0); MONO # 0.9 10^3/uL (0.0-0.8); MONO % 9.1 % (2.0-8.0); NEUTROPHILS # 8.5 10^3/uL (1.5-8.5); NEUTROPHILS % 83.1 % (36.0-66.0); PLATELET COUNT, AUTOMATED 161 10^3/uL (150-450); RED BLOOD COUNT 3.63 10^6/uL (4.00-5.40); WHITE BLOOD COUNT 10.2 10^3/uL (4.0-10.0)
[2023-05-30 06:41] LABS: THYROID STIMULATING HORMONE 3.25 uIU/ML (0.55-4.78); TOTAL T3 28.8 NG/DL (60.0-181.0)
[2023-05-30 06:42] LABS: FREE T4 0.77 NG/DL (0.89-1.76)
[2023-05-30 06:43] LABS: CALCIUM LEVEL 8.1 MG/DL (8.3-10.6); CREATININE FOR GFR 1.43 MG/DL (0.55-1.30); GLOMERULAR FILTRATION RATE 37.5 (>32); POTASSIUM SERUM 3.1 MMOL/L (3.5-5.1)
[2023-05-30] MEDS ORDERED: POTASSIUM CHLORIDE 10MEQ SR TABLET PO ONE (07:00)
[2023-05-30] MEDS: buPROPion **XL** TABLET 150MG (WELLBUTRIN XL) PO SCH (08:54)
[2023-05-30] MEDS: DOCUSATE SODIUM 100MG CAPSULE PO SCH ×2 (08:54→21:00)
[2023-05-30] MEDS: oxyBUTYnin *DITROPAN XL* 5 MG TABCR PO SCH (08:55)
[2023-05-30] MEDS: ATORVASTATIN 20 MG TAB PO SCH (08:55)
[2023-05-30] MEDS: allopurinoL 100 MG TAB PO SCH (08:55)
[2023-05-30] MEDS: MULTIVITAMINS/MINERALS THERAP 1 TAB PO SCH (08:55)
[2023-05-30] MEDS: METOPROLOL SUCC (TopROL XL) 50MG **XL** TAB PO SCH (08:56)
[2023-05-30] MEDS: VERAPAMIL 120MG SR TAB PO SCH (08:57)
[2023-05-30] MEDS: POTASSIUM CHLORIDE 10MEQ SR TABLET PO SCH (12:15)
[2023-05-30] MEDS ORDERED: VANCOMYCIN HCL 1,240 MG in IV FLUID PLACE HOLDER 1 EA IV SCH (13:40)
[2023-05-30 14:00] VITALS: BP 129/66; TEMP 97.9; O2SAT 94
[2023-05-30] MEDS ORDERED: VANCOMYCIN HCL 1,000 MG, VIAL MATE ADAPTER 1 EACH in D5W 250 ML IV SCH (15:00)
[2023-05-30] MEDS ORDERED: KETOROLAC 30 MG/ML 1ML VIAL IV PRN (17:20)
[2023-05-30] MEDS ORDERED: KETOROLAC 30 MG/ML 1ML VIAL IV ONE (17:20)
[2023-05-30] MEDS ORDERED: VANCOMYCIN HCL 750 MG, VIAL MATE ADAPTER 1 EACH in D5W 250 ML IV ONE (18:00)
[2023-05-30 20:57] VITALS: BP 133/60; TEMP 98.2; O2SAT 96
[2023-05-30] MEDS: DICLOFENAC EPOLAMINE 1.3% PATCH TOP SCH (21:16)
[2023-05-31] MEDS: MORPHINE 4 MG/ML 1ML VIAL IV PRN ×4 (04:28→21:58)
[2023-05-31] MEDS: LEVOTHYROXINE 100MCG TABLET (0.1MG) PO SCH (05:11)
[2023-05-31] MEDS: HEPARIN SOD (PORCINE) 5000UNITS/ML 1ML VIAL/SYRINGE SC SCH ×3 (05:11→20:37)
[2023-05-31 05:45] VITALS: BP 136/56; TEMP 98.8; O2SAT 98
[2023-05-31 07:09] LABS: BASO % 0.2 % (0.0-1.0); EOS # 0.2 10^3/uL (0.0-0.5); EOS % 2.9 % (0.0-3.0); HEMATOCRIT 32.3 % (36.0-47.0); HEMOGLOBIN 10.9 g/dl (12.0-15.5); LYMPH % 11.6 % (24.0-44.0); MEAN CORPUSCULAR HGB CONC 33.7 g/dl (32.0-36.5); MEAN CORPUSCULAR VOLUME 91.8 fl (80.0-96.0); MONO # 0.9 10^3/uL (0.0-0.8); MONO % 11.2 % (2.0-8.0); NEUTROPHILS # 6.1 10^3/uL (1.5-8.5); NEUTROPHILS % 73.1 % (36.0-66.0); PLATELET COUNT, AUTOMATED 145 10^3/uL (150-450); RED BLOOD COUNT 3.52 10^6/uL (4.00-5.40); WHITE BLOOD COUNT 8.3 10^3/uL (4.0-10.0)
[2023-05-31 07:27] LABS: VANCOMYCIN RANDOM 16.2 UG/ML
[2023-05-31 07:28] LABS: CALCIUM LEVEL 8.8 MG/DL (8.3-10.6); CREATININE FOR GFR 1.37 MG/DL (0.55-1.30); GLOMERULAR FILTRATION RATE 39.4 (>32); POTASSIUM SERUM 3.5 MMOL/L (3.5-5.1)
[2023-05-31] MEDS: MULTIVITAMINS/MINERALS THERAP 1 TAB PO SCH (08:45)
[2023-05-31] MEDS: buPROPion **XL** TABLET 150MG (WELLBUTRIN XL) PO SCH (08:46)
[2023-05-31] MEDS: oxyBUTYnin *DITROPAN XL* 5 MG TABCR PO SCH (08:46)
[2023-05-31] MEDS: allopurinoL 100 MG TAB PO SCH (08:46)
[2023-05-31] MEDS: POTASSIUM CHLORIDE 10MEQ SR TABLET PO SCH (08:46)
[2023-05-31] MEDS: ATORVASTATIN 20 MG TAB PO SCH (08:46)
[2023-05-31] MEDS: DOCUSATE SODIUM 100MG CAPSULE PO SCH ×3 (08:47→20:37)
[2023-05-31] MEDS: METOPROLOL SUCC (TopROL XL) 50MG **XL** TAB PO SCH ×2 (08:47→08:49)
[2023-05-31] MEDS: VERAPAMIL 120MG SR TAB PO SCH (08:49)
[2023-05-31] MEDS: DICLOFENAC EPOLAMINE 1.3% PATCH TOP SCH ×2 (08:50→20:37)
[2023-05-31] MEDS ORDERED: cefTRIAXone SOD 1 GM in D5W MINI-BAG PLUS 50 ML IV SCH (11:45)
[2023-05-31] MEDS ORDERED: VANCOMYCIN HCL 1,000 MG, VIAL MATE ADAPTER 1 EACH in D5W 250 ML IV SCH (12:00)
[2023-05-31] MEDS: ceFAZolin SOD 2 GM in IV 1 EA IV SCH ×2 (13:31→20:37)
[2023-05-31 14:00] VITALS: BP 125/92; TEMP 97.5; O2SAT 96
[2023-05-31 23:00] LABS: C REACTIVE PROTEIN QUANTITATIV 13.3 MG/DL (<1.0)
[2023-06-01] VITALS (9 sets, daily range): BP systolic 114–151; BP diastolic 50–69; TEMP 96.8–98.6; O2SAT 91–98
[2023-06-01] MEDS: LEVOTHYROXINE 100MCG TABLET (0.1MG) PO SCH (05:12)
[2023-06-01] MEDS: ceFAZolin SOD 2 GM in IV 1 EA IV SCH ×3 (05:12→20:40)
[2023-06-01] MEDS: HEPARIN SOD (PORCINE) 5000UNITS/ML 1ML VIAL/SYRINGE SC SCH ×2 (05:12→12:24)
[2023-06-01 06:09] LABS: BASO % 0.3 % (0.0-1.0); EOS # 0.3 10^3/uL (0.0-0.5); EOS % 4.3 % (0.0-3.0); HEMOGLOBIN 11.3 g/dl (12.0-15.5); LYMPH # 1.8 10^3/uL (1.5-5.0); MEAN CORPUSCULAR HEMOGLOBIN 30.4 pg (27.0-33.0); MEAN CORPUSCULAR HGB CONC 33.2 g/dl (32.0-36.5); MEAN CORPUSCULAR VOLUME 91.4 fl (80.0-96.0); MONO % 14.4 % (2.0-8.0); NEUTROPHILS # 3.5 10^3/uL (1.5-8.5); NEUTROPHILS % 51.9 % (36.0-66.0); PLATELET COUNT, AUTOMATED 164 10^3/uL (150-450); RED BLOOD COUNT 3.72 10^6/uL (4.00-5.40); WHITE BLOOD COUNT 6.7 10^3/uL (4.0-10.0)
[2023-06-01 06:24] LABS: CALCIUM LEVEL 8.5 MG/DL (8.3-10.6); CREATININE FOR GFR 1.51 MG/DL (0.55-1.30); GLOMERULAR FILTRATION RATE 35.2 (>32)
[2023-06-01] MEDS: buPROPion **XL** TABLET 150MG (WELLBUTRIN XL) PO SCH (08:57)
[2023-06-01] MEDS: DICLOFENAC EPOLAMINE 1.3% PATCH TOP SCH ×2 (08:57→20:40)
[2023-06-01] MEDS: MULTIVITAMINS/MINERALS THERAP 1 TAB PO SCH (08:57)
[2023-06-01] MEDS: ATORVASTATIN 20 MG TAB PO SCH (08:58)
[2023-06-01] MEDS: allopurinoL 100 MG TAB PO SCH (08:58)
[2023-06-01] MEDS: DOCUSATE SODIUM 100MG CAPSULE PO SCH ×2 (08:58→20:40)
[2023-06-01] MEDS: METOPROLOL SUCC (TopROL XL) 50MG **XL** TAB PO SCH (08:59)
[2023-06-01] MEDS: POTASSIUM CHLORIDE 10MEQ SR TABLET PO SCH ×3 (09:01→11:00)
[2023-06-01] MEDS: oxyBUTYnin *DITROPAN XL* 5 MG TABCR PO SCH (09:03)
[2023-06-01] MEDS: VERAPAMIL 120MG SR TAB PO SCH (09:03)
[2023-06-01 11:49] LABS: ERYTHROCYTE SEDIMENTATION RATE 95 mm/hr (0-30)
[2023-06-01] MEDS ORDERED: LIDOCAINE 1% MDV 20ML VIAL As Ordered ONE (16:12)
[2023-06-01] MEDS: SODIUM CHLORIDE 0.9% INJ 10 ML SYR IV SCH (18:00)
[2023-06-01] MEDS ORDERED: SODIUM CHLORIDE 0.9% INJ 10 ML SYR IV PRN (18:00)
[2023-06-02] VITALS (8 sets, daily range): BP systolic 118–136; BP diastolic 51–65; TEMP 97.2–98.1; O2SAT 95–97
[2023-06-02] MEDS: ceFAZolin SOD 2 GM in IV 1 EA IV SCH ×3 (05:00→20:37)
[2023-06-02] MEDS: SODIUM CHLORIDE 0.9% INJ 10 ML SYR IV SCH ×2 (06:03→15:01)
[2023-06-02] MEDS: HEPARIN SOD (PORCINE) 5000UNITS/ML 1ML VIAL/SYRINGE SC SCH ×3 (06:17→20:37)
[2023-06-02] MEDS: LEVOTHYROXINE 100MCG TABLET (0.1MG) PO SCH (06:17)
[2023-06-02 06:27] LABS: BASO % 0.4 % (0.0-1.0); EOS # 0.3 10^3/uL (0.0-0.5); EOS % 4.5 % (0.0-3.0); HEMATOCRIT 31.6 % (36.0-47.0); HEMOGLOBIN 10.3 g/dl (12.0-15.5); LYMPH % 29.3 % (24.0-44.0); MEAN CORPUSCULAR HEMOGLOBIN 30.5 pg (27.0-33.0); MEAN CORPUSCULAR HGB CONC 32.6 g/dl (32.0-36.5); MEAN CORPUSCULAR VOLUME 93.5 fl (80.0-96.0); MONO # 0.8 10^3/uL (0.0-0.8); MONO % 11.7 % (2.0-8.0); NEUTROPHILS # 3.6 10^3/uL (1.5-8.5); NEUTROPHILS % 52.6 % (36.0-66.0); PLATELET COUNT, AUTOMATED 168 10^3/uL (150-450); RED BLOOD COUNT 3.38 10^6/uL (4.00-5.40); WHITE BLOOD COUNT 6.9 10^3/uL (4.0-10.0)
[2023-06-02 06:46] LABS: CREATININE FOR GFR 1.37 MG/DL (0.55-1.30); GLOMERULAR FILTRATION RATE 39.4 (>32); POTASSIUM SERUM 3.7 MMOL/L (3.5-5.1)
[2023-06-02] MEDS ORDERED: SODIUM CHLORIDE 0.9% INJ 10 ML SYR IV PRN (08:05)
[2023-06-02] MEDS: POTASSIUM CHLORIDE 10MEQ SR TABLET PO SCH (08:56)
[2023-06-02] MEDS: DICLOFENAC EPOLAMINE 1.3% PATCH TOP SCH ×2 (08:56→20:37)
[2023-06-02] MEDS: buPROPion **XL** TABLET 150MG (WELLBUTRIN XL) PO SCH (08:56)
[2023-06-02] MEDS: VERAPAMIL 120MG SR TAB PO SCH (08:57)
[2023-06-02] MEDS: allopurinoL 100 MG TAB PO SCH (08:57)
[2023-06-02] MEDS: oxyBUTYnin *DITROPAN XL* 5 MG TABCR PO SCH (08:57)
[2023-06-02] MEDS: MULTIVITAMINS/MINERALS THERAP 1 TAB PO SCH (08:57)
[2023-06-02] MEDS: DOCUSATE SODIUM 100MG CAPSULE PO SCH ×2 (08:58→20:37)
[2023-06-02] MEDS: METOPROLOL SUCC (TopROL XL) 50MG **XL** TAB PO SCH (08:58)
[2023-06-02] MEDS: ATORVASTATIN 20 MG TAB PO SCH (08:58)
[2023-06-02] MEDS ORDERED: SODIUM CHLORIDE 0.9% INJ 10 ML SYR IV SCH (18:00)
[2023-06-03] MEDS: ceFAZolin SOD 2 GM in IV 1 EA IV SCH ×3 (05:00→21:01)
[2023-06-03 05:09] VITALS: BP_SYST 131; BP_DIAS 53; BP_DIAS 59; TEMP 98.4; O2SAT 97
[2023-06-03 06:00] VITALS: BP 138/74; TEMP 98.1; O2SAT 96
[2023-06-03] MEDS: HEPARIN SOD (PORCINE) 5000UNITS/ML 1ML VIAL/SYRINGE SC SCH ×3 (06:30→21:01)
[2023-06-03] MEDS: LEVOTHYROXINE 100MCG TABLET (0.1MG) PO SCH (06:30)
[2023-06-03] MEDS: SODIUM CHLORIDE 0.9% INJ 10 ML SYR IV SCH ×2 (06:31→17:22)
[2023-06-03 06:43] LABS: BASO # 0.1 10^3/uL (0.0-0.2); BASO % 0.6 % (0.0-1.0); EOS # 0.3 10^3/uL (0.0-0.5); EOS % 3.7 % (0.0-3.0); HEMATOCRIT 32.7 % (36.0-47.0); HEMOGLOBIN 10.6 g/dl (12.0-15.5); LYMPH # 2.7 10^3/uL (1.5-5.0); LYMPH % 31.1 % (24.0-44.0); MEAN CORPUSCULAR HEMOGLOBIN 30.5 pg (27.0-33.0); MEAN CORPUSCULAR HGB CONC 32.4 g/dl (32.0-36.5); MEAN CORPUSCULAR VOLUME 94.2 fl (80.0-96.0); MONO # 0.9 10^3/uL (0.0-0.8); MONO % 10.5 % (2.0-8.0); NEUTROPHILS # 4.4 10^3/uL (1.5-8.5); NEUTROPHILS % 51.6 % (36.0-66.0); PLATELET COUNT, AUTOMATED 173 10^3/uL (150-450); RED BLOOD COUNT 3.47 10^6/uL (4.00-5.40); WHITE BLOOD COUNT 8.5 10^3/uL (4.0-10.0)
[2023-06-03 07:12] LABS: CALCIUM LEVEL 8.5 MG/DL (8.3-10.6); CREATININE FOR GFR 1.5 MG/DL (0.55-1.30); GLOMERULAR FILTRATION RATE 35.5 (>32); POTASSIUM SERUM 3.5 MMOL/L (3.5-5.1)
[2023-06-03] MEDS: DICLOFENAC EPOLAMINE 1.3% PATCH TOP SCH ×2 (08:57→21:01)
[2023-06-03] MEDS: MULTIVITAMINS/MINERALS THERAP 1 TAB PO SCH (08:59)
[2023-06-03] MEDS: buPROPion **XL** TABLET 150MG (WELLBUTRIN XL) PO SCH (08:59)
[2023-06-03 09:00] VITALS: BP 134/53
[2023-06-03] MEDS: POTASSIUM CHLORIDE 10MEQ SR TABLET PO SCH (09:00)
[2023-06-03] MEDS: DOCUSATE SODIUM 100MG CAPSULE PO SCH ×2 (09:00→20:58)
[2023-06-03] MEDS: VERAPAMIL 120MG SR TAB PO SCH (09:00)
[2023-06-03] MEDS: allopurinoL 100 MG TAB PO SCH (09:01)
[2023-06-03] MEDS: METOPROLOL SUCC (TopROL XL) 50MG **XL** TAB PO SCH (09:01)
[2023-06-03] MEDS: oxyBUTYnin *DITROPAN XL* 5 MG TABCR PO SCH (09:01)
[2023-06-03] MEDS: ATORVASTATIN 20 MG TAB PO SCH (09:02)
[2023-06-03 14:00] VITALS: BP 133/53; TEMP 97.7; O2SAT 94
[2023-06-04] MEDS: ceFAZolin SOD 2 GM in IV 1 EA IV SCH (05:41)
[2023-06-04] MEDS: LEVOTHYROXINE 100MCG TABLET (0.1MG) PO SCH (05:42)
[2023-06-04] MEDS: HEPARIN SOD (PORCINE) 5000UNITS/ML 1ML VIAL/SYRINGE SC SCH ×3 (05:42→20:25)
[2023-06-04] MEDS: SODIUM CHLORIDE 0.9% INJ 10 ML SYR IV SCH ×2 (05:43→18:29)
[2023-06-04 06:18] VITALS: BP 132/64; TEMP 97.9; O2SAT 97
[2023-06-04] MEDS: buPROPion **XL** TABLET 150MG (WELLBUTRIN XL) PO SCH (08:38)
[2023-06-04] MEDS: DICLOFENAC EPOLAMINE 1.3% PATCH TOP SCH ×2 (08:38→20:25)
[2023-06-04] MEDS: allopurinoL 100 MG TAB PO SCH (08:38)
[2023-06-04] MEDS: ATORVASTATIN 20 MG TAB PO SCH (08:38)
[2023-06-04] MEDS: MULTIVITAMINS/MINERALS THERAP 1 TAB PO SCH (08:38)
[2023-06-04] MEDS: DOCUSATE SODIUM 100MG CAPSULE PO SCH ×2 (08:38→20:25)
[2023-06-04] MEDS: METOPROLOL SUCC (TopROL XL) 50MG **XL** TAB PO SCH (08:39)
[2023-06-04] MEDS: oxyBUTYnin *DITROPAN XL* 5 MG TABCR PO SCH (08:42)
[2023-06-04] MEDS: POTASSIUM CHLORIDE 10MEQ SR TABLET PO SCH (08:42)
[2023-06-04] MEDS: VERAPAMIL 120MG SR TAB PO SCH (08:42)
[2023-06-04] MEDS: cefTRIAXone SOD 2 GM in D5W MINI-BAG PLUS 50 ML IV SCH (18:28)
[2023-06-05 05:19] VITALS: BP 115/50; TEMP 97.7; O2SAT 98
[2023-06-05] MEDS: cefTRIAXone SOD 2 GM in D5W MINI-BAG PLUS 50 ML IV SCH (06:09)
[2023-06-05] MEDS: LEVOTHYROXINE 100MCG TABLET (0.1MG) PO SCH (06:09)
[2023-06-05] MEDS: HEPARIN SOD (PORCINE) 5000UNITS/ML 1ML VIAL/SYRINGE SC SCH (06:09)
[2023-06-05] MEDS: SODIUM CHLORIDE 0.9% INJ 10 ML SYR IV SCH (06:10)
[2023-06-05] MEDS: DOCUSATE SODIUM 100MG CAPSULE PO SCH (08:28)
[2023-06-05] MEDS: ATORVASTATIN 20 MG TAB PO SCH (08:28)
[2023-06-05] MEDS: POTASSIUM CHLORIDE 10MEQ SR TABLET PO SCH (08:28)
[2023-06-05] MEDS: allopurinoL 100 MG TAB PO SCH (08:28)
[2023-06-05] MEDS: buPROPion **XL** TABLET 150MG (WELLBUTRIN XL) PO SCH (08:28)
[2023-06-05] MEDS: DICLOFENAC EPOLAMINE 1.3% PATCH TOP SCH (08:28)
[2023-06-05] MEDS: MULTIVITAMINS/MINERALS THERAP 1 TAB PO SCH (08:28)
[2023-06-05] MEDS: oxyBUTYnin *DITROPAN XL* 5 MG TABCR PO SCH (08:29)
[2023-06-05] MEDS: METOPROLOL SUCC (TopROL XL) 50MG **XL** TAB PO SCH (08:29)
[2023-06-05] MEDS: VERAPAMIL 120MG SR TAB PO SCH (08:29)
== END 2023-06-05 14:26 | DRG 853 ==
LOC: EDBD 19:47 → M ED 19:47 → M ED INP 05-29 04:14 → M MSPAV 05-29 06:50
PROVIDERS: ADMIT Family Medicine; ATTEND Internal Medicine
PROC: B246ZZZ Ultrasonography of Right and Left Heart (ICD-10-PCS; 2023-05-30)
PROC: 02HV33Z Insertion of Infusion Device into Superior Vena Cava, Percutaneous Approach (ICD-10-PCS; 2023-06-01)
PROC: 0Y6V0Z2 Detachment at Right 4th Toe, Mid, Open Approach (ICD-10-PCS; principal; 2023-06-01 16:00)
DX: A41.9 Sepsis, unspecified organism (principal); G93.41 Metabolic encephalopathy; N39.0 Urinary tract infection, site not specified; R78.81 Bacteremia; M86.9 Osteomyelitis, unspecified; E87.6 Hypokalemia; N18.30 Chronic kidney disease, stage 3 unspecified; I12.9 Hypertensive chronic kidney disease with stage 1 through stage 4 chronic kidney disease, or unspecified chronic kidney disease; M10.9 Gout, unspecified; E03.9 Hypothyroidism, unspecified; M25.511 Pain in right shoulder; B95.61 Methicillin susceptible Staphylococcus aureus infection as the cause of diseases classified elsewhere; B96.20 Unspecified Escherichia coli [E. coli] as the cause of diseases classified elsewhere; L97.519 Non-pressure chronic ulcer of other part of right foot with unspecified severity; Z87.891 Personal history of nicotine dependence; Z90.49 Acquired absence of other specified parts of digestive tract; Z79.899 Other long term (current) drug therapy

== ENCOUNTER → 2023-06-19 | Outpatient (REF) | payer MEDICARE, OTHER ==
[~2023-06-19] MED LIST changes: +ALLO10TA PO; +MEDR4TAB PO; +OXYB10TA23 PO; +POTA10CA60 PO; +VERA240T64 PO; +VITMTA PO
[2023-06-19 07:36] LABS: HEMOGLOBIN 9.4 g/dl (12.0-15.5); MEAN CORPUSCULAR HEMOGLOBIN 30.5 pg (27.0-33.0); MEAN CORPUSCULAR HGB CONC 31.3 g/dl (32.0-36.5); MEAN CORPUSCULAR VOLUME 97.4 fl (80.0-96.0); PLATELET COUNT, AUTOMATED 168 10^3/uL (150-450); RED BLOOD COUNT 3.08 10^6/uL (4.00-5.40); WHITE BLOOD COUNT 4.8 10^3/uL (4.0-10.0)
[2023-06-19 07:50] LABS: C REACTIVE PROTEIN QUANTITATIV 2.4 MG/DL (<1.0)
[2023-06-19 07:51] LABS: CALCIUM LEVEL 8.7 MG/DL (8.3-10.6); CREATININE FOR GFR 1.39 MG/DL (0.55-1.30); GLOMERULAR FILTRATION RATE 38.7 (>32); POTASSIUM SERUM 4.1 MMOL/L (3.5-5.1)
== END ==
LOC: SKLAB2 06:43
PROVIDERS: ATTEND Internal Medicine
DX: M86.171 Other acute osteomyelitis, right ankle and foot (principal)

== ENCOUNTER → 2023-06-26 | Outpatient (REF) | payer MEDICARE, OTHER ==
[2023-06-26 07:30] LABS: HEMATOCRIT 33.4 % (36.0-47.0); HEMOGLOBIN 10.7 g/dl (12.0-15.5); MEAN CORPUSCULAR HEMOGLOBIN 30.4 pg (27.0-33.0); MEAN CORPUSCULAR VOLUME 94.9 fl (80.0-96.0); PLATELET COUNT, AUTOMATED 257 10^3/uL (150-450); RED BLOOD COUNT 3.52 10^6/uL (4.00-5.40)
[2023-06-26 07:40] LABS: CREATININE FOR GFR 1.52 MG/DL (0.55-1.30); GLOMERULAR FILTRATION RATE 34.9 (>32); POTASSIUM SERUM 3.9 MMOL/L (3.5-5.1)
== END ==
LOC: SKLAB2 07:00
PROVIDERS: ATTEND Internal Medicine
DX: M86.171 Other acute osteomyelitis, right ankle and foot (principal)

== ENCOUNTER → 2023-07-03 | Outpatient (REF) | payer MEDICARE, OTHER ==
[2023-07-03 08:40] LABS: HEMATOCRIT 34.6 % (36.0-47.0); MEAN CORPUSCULAR HEMOGLOBIN 30.6 pg (27.0-33.0); MEAN CORPUSCULAR HGB CONC 31.8 g/dl (32.0-36.5); MEAN CORPUSCULAR VOLUME 96.1 fl (80.0-96.0); PLATELET COUNT, AUTOMATED 248 10^3/uL (150-450); WHITE BLOOD COUNT 6.4 10^3/uL (4.0-10.0)
[2023-07-03 09:12] LABS: C REACTIVE PROTEIN QUANTITATIV 1.6 MG/DL (<1.0); CREATININE FOR GFR 1.51 MG/DL (0.55-1.30); GLOMERULAR FILTRATION RATE 35.2 (>32); POTASSIUM SERUM 3.8 MMOL/L (3.5-5.1)
== END ==
LOC: SKLAB2 07-02 10:08
PROVIDERS: ATTEND Internal Medicine
DX: M86.171 Other acute osteomyelitis, right ankle and foot (principal)

== ENCOUNTER → 2023-07-04 | Outpatient (CLI) | payer MEDICARE, OTHER | LOC: M RAD 10:32 | PROVIDERS: ATTEND Internal Medicine | DX: M79.89 Other specified soft tissue disorders (principal) ==

== ENCOUNTER → 2023-07-10 | Outpatient (REF) | payer MEDICARE, OTHER ==
[2023-07-10 06:15] LABS: HEMATOCRIT 32.4 % (36.0-47.0); HEMOGLOBIN 10.4 g/dl (12.0-15.5); MEAN CORPUSCULAR HGB CONC 32.1 g/dl (32.0-36.5); MEAN CORPUSCULAR VOLUME 96.4 fl (80.0-96.0); PLATELET COUNT, AUTOMATED 161 10^3/uL (150-450); RED BLOOD COUNT 3.36 10^6/uL (4.00-5.40); WHITE BLOOD COUNT 5.4 10^3/uL (4.0-10.0)
[2023-07-10 06:34] LABS: C REACTIVE PROTEIN QUANTITATIV < 0.40 MG/DL (<1.0)
[2023-07-10 06:36] LABS: BLOOD UREA NITROGEN 22 MG/DL (9-23); CALCIUM LEVEL 8.6 MG/DL (8.3-10.6); CARBON DIOXIDE LEVEL 31 MMOL/L (20-31); CHLORIDE LEVEL 107 MMOL/L (98-107); CREATININE FOR GFR 1.48 MG/DL (0.55-1.30); GLUCOSE, FASTING 79 MG/DL (74-106); SODIUM LEVEL 145 MMOL/L (136-145)
== END ==
LOC: SKLAB2 07:00
PROVIDERS: ATTEND Internal Medicine
DX: M86.171 Other acute osteomyelitis, right ankle and foot (principal)

== ENCOUNTER 2024-08-26 21:47 | Inpatient (IN) | payer MEDICARE, OTHER ==
[~2024-08-26] VITALS: Ht 170.2 cm; Wt 89.2 kg
[~2024-08-26 21:47] MED LIST changes: +BUPR-597 PO; -BUPR300T92 PO; -POTA10CA60 PO; +POTA10CA70 PO
[2024-08-26 23:11] LABS: BASO # 0.1 10^3/uL (0.0-0.2); BASO % 0.8 % (0.0-1.0); EOS # 0.4 10^3/uL (0.0-0.5); EOS % 4.9 % (0.0-3.0); HEMATOCRIT 34.8 % (36.0-47.0); HEMOGLOBIN 11.9 g/dl (12.0-15.5); LYMPH # 1.6 10^3/uL (1.5-5.0); LYMPH % 19.7 % (24.0-44.0); MEAN CORPUSCULAR HEMOGLOBIN 32.5 pg (27.0-33.0); MEAN CORPUSCULAR HGB CONC 34.2 g/dl (32.0-36.5); MEAN CORPUSCULAR VOLUME 95.1 fl (80.0-96.0); MONO # 0.5 10^3/uL (0.0-0.8); MONO % 6.4 % (2.0-8.0); NEUTROPHILS # 5.3 10^3/uL (1.5-8.5); NEUTROPHILS % 67.6 % (36.0-66.0); PLATELET COUNT, AUTOMATED 126 10^3/uL (150-450); RED BLOOD COUNT 3.66 10^6/uL (4.00-5.40); WHITE BLOOD COUNT 7.9 10^3/uL (4.0-10.0)
[2024-08-26] MEDS: ACETAMINOPHEN *IV* 1,000 MG in IV 1 EA IV ONE (23:31)
[2024-08-26 23:35] LABS: BLOOD UREA NITROGEN 39 MG/DL (9-23); CARBON DIOXIDE LEVEL 24 MMOL/L (20-31); CHLORIDE LEVEL 107 MMOL/L (98-107); CK-MB VALUE MASS < 1.0 NG/ML (<3.6); CREATININE FOR GFR 1.45 MG/DL (0.55-1.30); GLOMERULAR FILTRATION RATE 36.8 (>32); GLUCOSE, FASTING 117 MG/DL (74-106); MAGNESIUM LEVEL 1.6 MG/DL (1.8-2.4); POTASSIUM SERUM 3.4 MMOL/L (3.5-5.1); SODIUM LEVEL 139 MMOL/L (136-145)
[2024-08-26 23:42] LABS: CPK CREATINE PHOSPHOKINASE 48 U/L (34-145); MB/CK RELATIVE INDEX 2.08 (< OR =4)
[2024-08-27] MEDS ORDERED: ONETAB33 PO (00:38)
[2024-08-27] MEDS ORDERED: HOME MED LIST COMPLETE! XX SCH (00:40)
[2024-08-27] MEDS: fentaNYL 100 MCG/2 ML INJECTION IV PRN (01:05)
[2024-08-27] MEDS ORDERED: traMADol 50 MG TAB PO PRN (01:35)
[2024-08-27] MEDS ORDERED: MORPHINE 2 MG/ML 1ML VIAL IV PRN (01:35)
[2024-08-27] MEDS: LR 1,000 ML IV SCH (03:14)
[2024-08-27] MEDS: MAG SULF 1GM/100ML (MAG RUN) 1 GM in IV 1 EA IV ONE (03:16)
[2024-08-27] MEDS: METHOCARBAMOL 1,000 MG/10 ML VIAL IV ONE (04:32)
[2024-08-27 06:56] LABS: HEMATOCRIT 33.4 % (36.0-47.0); HEMOGLOBIN 11.2 g/dl (12.0-15.5); MEAN CORPUSCULAR HEMOGLOBIN 32.1 pg (27.0-33.0); MEAN CORPUSCULAR HGB CONC 33.5 g/dl (32.0-36.5); MEAN CORPUSCULAR VOLUME 95.7 fl (80.0-96.0); PLATELET COUNT, AUTOMATED 121 10^3/uL (150-450); RED BLOOD COUNT 3.49 10^6/uL (4.00-5.40); WHITE BLOOD COUNT 10.2 10^3/uL (4.0-10.0)
[2024-08-27 07:08] LABS: INR 1.24; PARTIAL THROMBOPLASTIN TIME 31.4 SECONDS (24.8-34.2); PROTHROMBIN TIME 15.2 SECONDS (12.5-14.5)
[2024-08-27 07:19] LABS: ALBUMIN 3.5 G/DL (3.2-5.2); BILIRUBIN,TOTAL 0.9 MG/DL (0.3-1.2); CALCIUM LEVEL 9.2 MG/DL (8.3-10.6); CREATININE FOR GFR 1.34 MG/DL (0.55-1.30); GLOMERULAR FILTRATION RATE 40.3 (>32); TOTAL PROTEIN 6.6 G/DL (5.7-8.2)
[2024-08-27] MEDS: KCL 10MEQ/100ML SWI (KRUN) 10 MEQ in IV 1 EA IV STA (07:46)
[2024-08-27 12:38] LABS: CALCIUM LEVEL 9.2 MG/DL (8.3-10.6); CREATININE FOR GFR 1.27 MG/DL (0.55-1.30); GLOMERULAR FILTRATION RATE 42.9 (>32); MAGNESIUM LEVEL 1.7 MG/DL (1.8-2.4); POTASSIUM SERUM 3.2 MMOL/L (3.5-5.1)
[2024-08-27] MEDS: MORPHINE 2 MG/ML 1ML VIAL IV PRN (14:47)
[2024-08-27] MEDS: KCL 10MEQ/100ML SWI (KRUN) 10 MEQ in IV 1 EA IV SCH (15:23)
[2024-08-27 15:40] VITALS: BP 176/80; TEMP 97.5; O2SAT 97
[2024-08-27 20:50] VITALS: BP 175/76; TEMP 97.5; O2SAT 96
[2024-08-27] MEDS: ACETAMINOPHEN 325 MG TAB PO PRN (21:52)
[2024-08-27] MEDS: MAGNESIUM OXIDE 400MG TAB (MAG-OX) PO SCH (21:52)
[2024-08-28] VITALS (13 sets, daily range): BP systolic 98–164; BP diastolic 41–75; TEMP 97.2–97.9; O2SAT 93–97
[2024-08-28 05:42] LABS: BASO % 0.5 % (0.0-1.0); EOS # 0.2 10^3/uL (0.0-0.5); EOS % 3.2 % (0.0-3.0); HEMATOCRIT 30.6 % (36.0-47.0); HEMOGLOBIN 10.2 g/dl (12.0-15.5); LYMPH # 1.6 10^3/uL (1.5-5.0); LYMPH % 21.3 % (24.0-44.0); MEAN CORPUSCULAR HGB CONC 33.3 g/dl (32.0-36.5); MEAN CORPUSCULAR VOLUME 95.9 fl (80.0-96.0); MONO # 0.9 10^3/uL (0.0-0.8); MONO % 11.7 % (2.0-8.0); NEUTROPHILS # 4.7 10^3/uL (1.5-8.5); NEUTROPHILS % 62.9 % (36.0-66.0); PLATELET COUNT, AUTOMATED 119 10^3/uL (150-450); RED BLOOD COUNT 3.19 10^6/uL (4.00-5.40); WHITE BLOOD COUNT 7.5 10^3/uL (4.0-10.0)
[2024-08-28 06:05] LABS: CALCIUM LEVEL 9.2 MG/DL (8.3-10.6); CREATININE FOR GFR 1.27 MG/DL (0.55-1.30); GLOMERULAR FILTRATION RATE 42.9 (>32); MAGNESIUM LEVEL 1.6 MG/DL (1.8-2.4); POTASSIUM SERUM 3.4 MMOL/L (3.5-5.1)
[2024-08-28] MEDS: oxyBUTYnin *DITROPAN XL* 5 MG TABCR PO SCH (07:54)
[2024-08-28] MEDS: buPROPion **XL** TABLET 150MG (WELLBUTRIN XL) PO SCH (07:54)
[2024-08-28] MEDS: LEVOTHYROXINE 100MCG TABLET (0.1MG) PO SCH (07:54)
[2024-08-28] MEDS: MAG SULF 1GM/100ML (MAG RUN) 1 GM in IV 1 EA IV SCH (07:55)
[2024-08-28] MEDS: allopurinoL 100 MG TAB PO SCH (07:55)
[2024-08-28] MEDS: ATORVASTATIN 20 MG TAB PO SCH (07:55)
[2024-08-28] MEDS: VERAPAMIL 120MG SR TAB PO SCH (08:00)
[2024-08-28] MEDS ORDERED: METOPROLOL SUCC (TopROL XL) 50MG **XL** TAB PO SCH (09:00)
[2024-08-28] MEDS ORDERED: POTASSIUM CHLORIDE 10MEQ SR TABLET PO SCH (09:00)
[2024-08-28] MEDS: KCL 10MEQ/100ML SWI (KRUN) 10 MEQ in IV 1 EA IV SCH (10:06)
[2024-08-28] MEDS ORDERED: fentaNYL 100 MCG/2 ML INJECTION As Ordered ONE (12:38)
[2024-08-28] MEDS ORDERED: ROCURONIUM BROMIDE 50MG/5ML VIAL As Ordered ONE (12:43)
[2024-08-28] MEDS ORDERED: ONDANSETRON 4MG 2ML VIAL As Ordered ONE (12:43)
[2024-08-28] MEDS ORDERED: propofoL 200 MG/20 ML VIAL As Ordered ONE (12:43)
[2024-08-28] MEDS ORDERED: ACETAMINOPHEN 1000MG 100ML IV BAG As Ordered ONE (12:43)
[2024-08-28] MEDS ORDERED: LIDOCAINE 2% 100MG/5ML SDV (FOR ANES.) As Ordered ONE (12:43)
[2024-08-28] MEDS ORDERED: SUGAMMADEX SODIUM 500 MG/5 ML VIAL (BRIDION) As Ordered ONE (12:43)
[2024-08-28] MEDS: LIDOCAINE W/EPINEPHRINE 1% 20ML VIAL As Ordered ONE (13:20)
[2024-08-28] MEDS: ceFAZolin 1GM VIAL As Ordered ONE (13:20)
[2024-08-28] MEDS: ceFAZolin 2 GM/D5W 50 ML IV BAG As Ordered ONE (13:50)
[2024-08-28] MEDS: TRANEXAMIC ACID 100 MG/ML 10ML VIAL As Ordered ONE (14:00)
[2024-08-28] MEDS: VANCOMYCIN 1000MG/20ML VIAL As Ordered ONE (15:48)
[2024-08-28] MEDS ORDERED: ONDANSETRON 4MG 2ML VIAL IV PRN (16:10)
[2024-08-28] MEDS: LR 1,000 ML IV SCH (16:10)
[2024-08-28] MEDS ORDERED: fentaNYL 100 MCG/2 ML INJECTION IV PRN (16:10)
[2024-08-28] MEDS ORDERED: HYDROMORPHONE HCL 0.5 MG/ 0.5 ML SYRINGE IV PRN (16:10)
[2024-08-28] MEDS ORDERED: oxyCODONE 5MG TAB PO PRN (16:10)
[2024-08-28 16:57] LABS: HEMATOCRIT 25.8 % (36.0-47.0); HEMOGLOBIN 8.7 g/dl (12.0-15.5)
[2024-08-28] MEDS: ceFAZolin SOD 2 GM in IV 1 EA IV SCH (21:48)
[2024-08-28] MEDS: HEPARIN SOD (PORCINE) 5000UNITS/ML 1ML VIAL/SYRINGE SC SCH (21:48)
[2024-08-28] MEDS: NS 500 ML IV ONE (22:40)
[2024-08-29] VITALS (7 sets, daily range): BP systolic 98–147; BP diastolic 41–58; TEMP 96.8–98.1; O2SAT 91–96
[2024-08-29 05:54] LABS: CALCIUM LEVEL 8.1 MG/DL (8.3-10.6); CREATININE FOR GFR 1.68 MG/DL (0.55-1.30); GLOMERULAR FILTRATION RATE 31.1 (>32); MAGNESIUM LEVEL 2.2 MG/DL (1.8-2.4)
[2024-08-29] MEDS: POTASSIUM CHLORIDE 10MEQ SR TABLET PO SCH (08:38)
[2024-08-29 11:01] LABS: BASO % 0.1 % (0.0-1.0); HEMATOCRIT 23.2 % (36.0-47.0); HEMOGLOBIN 7.4 g/dl (12.0-15.5); LYMPH # 0.8 10^3/uL (1.5-5.0); LYMPH % 8.2 % (24.0-44.0); MEAN CORPUSCULAR HEMOGLOBIN 31.9 pg (27.0-33.0); MEAN CORPUSCULAR HGB CONC 31.9 g/dl (32.0-36.5); MONO # 0.7 10^3/uL (0.0-0.8); MONO % 7.6 % (2.0-8.0); NEUTROPHILS # 8.1 10^3/uL (1.5-8.5); NEUTROPHILS % 83.7 % (36.0-66.0); RED BLOOD COUNT 2.32 10^6/uL (4.00-5.40); WHITE BLOOD COUNT 9.6 10^3/uL (4.0-10.0)
[2024-08-29] MEDS: PERCOCET 5MG/325MG TAB PO SCH (11:24)
[2024-08-29 11:25] LABS: PLATELET COUNT, AUTOMATED 94 10^3/uL (150-450)
[2024-08-29] MEDS ORDERED: LIDOCAINE 5% (LIDODERM) PATCH TD ONE (12:00)
[2024-08-29 13:09] LABS: HEMATOCRIT 26.8 % (36.0-47.0); HEMOGLOBIN 9.1 g/dl (12.0-15.5)
[2024-08-29] MEDS: LIDOCAINE 5% (LIDODERM) PATCH TD SCH (14:28)
[2024-08-29] MEDS: CEFDINIR 300 MG CAP (OMNICEF) PO SCH (20:18)
[2024-08-29] MEDS: PERCOCET 5MG/325MG TAB PO PRN (20:20)
[2024-08-30 04:26] VITALS: BP 131/51; TEMP 97.7; O2SAT 95
[2024-08-30 05:57] LABS: CALCIUM LEVEL 8.6 MG/DL (8.3-10.6); CREATININE FOR GFR 1.63 MG/DL (0.55-1.30); GLOMERULAR FILTRATION RATE 32.2 (>32); MAGNESIUM LEVEL 2.3 MG/DL (1.8-2.4)
[2024-08-30 08:00] VITALS: BP 125/67; TEMP 97.9; O2SAT 95
[2024-08-30] MEDS: PERCOCET 5MG/325MG TAB PO PRN (10:17)
[2024-08-30 12:00] VITALS: BP 123/59; TEMP 97.7; O2SAT 94
[2024-08-30 16:00] VITALS: BP 126/61; TEMP 97.7; O2SAT 95
[2024-08-30 19:29] VITALS: BP 117/41; TEMP 97.5; O2SAT 93
[2024-08-31] VITALS (13 sets, daily range): BP systolic 112–138; BP diastolic 26–45; TEMP 97.3–98.1; O2SAT 90–95
[2024-08-31] MEDS: MORPHINE 2 MG/ML 1ML VIAL IV PRN (00:31)
[2024-08-31 06:50] LABS: BASO % 0.5 % (0.0-1.0); EOS # 0.6 10^3/uL (0.0-0.5); EOS % 6.4 % (0.0-3.0); LYMPH # 1.3 10^3/uL (1.5-5.0); LYMPH % 15.3 % (24.0-44.0); MEAN CORPUSCULAR HEMOGLOBIN 33.2 pg (27.0-33.0); MEAN CORPUSCULAR HGB CONC 32.2 g/dl (32.0-36.5); MEAN CORPUSCULAR VOLUME 103.1 fl (80.0-96.0); MONO # 0.9 10^3/uL (0.0-0.8); MONO % 10.7 % (2.0-8.0); NEUTROPHILS # 5.7 10^3/uL (1.5-8.5); NEUTROPHILS % 66.3 % (36.0-66.0); PLATELET COUNT, AUTOMATED 108 10^3/uL (150-450); RED BLOOD COUNT 1.93 10^6/uL (4.00-5.40); WHITE BLOOD COUNT 8.6 10^3/uL (4.0-10.0)
[2024-08-31 06:53] LABS: CALCIUM LEVEL 8.5 MG/DL (8.3-10.6); CREATININE FOR GFR 1.57 MG/DL (0.55-1.30); GLOMERULAR FILTRATION RATE 33.6 (>32); MAGNESIUM LEVEL 2.4 MG/DL (1.8-2.4); POTASSIUM SERUM 4.1 MMOL/L (3.5-5.1)
[2024-08-31 06:57] LABS: HEMATOCRIT 19.9 % (36.0-47.0); HEMOGLOBIN 6.4 g/dl (12.0-15.5)
[2024-08-31] MEDS: NS 1,000 ML IV ONE (10:04)
[2024-08-31 10:14] LABS: HEMATOCRIT 20.1 % (36.0-47.0); HEMOGLOBIN 6.5 g/dl (12.0-15.5)
[2024-08-31 17:08] LABS: HEMATOCRIT 24.7 % (36.0-47.0); HEMOGLOBIN 8.3 g/dl (12.0-15.5)
[2024-08-31 21:21] LABS: HEMATOCRIT 25.2 % (36.0-47.0); HEMOGLOBIN 8.4 g/dl (12.0-15.5)
[2024-09-01 01:37] LABS: HEMATOCRIT 24.5 % (36.0-47.0); HEMOGLOBIN 8.1 g/dl (12.0-15.5)
[2024-09-01 04:21] VITALS: BP 147/53; TEMP 97.9; O2SAT 93; O2SAT 96
[2024-09-01 06:46] LABS: CALCIUM LEVEL 8.3 MG/DL (8.3-10.6); CREATININE FOR GFR 1.41 MG/DL (0.55-1.30); MAGNESIUM LEVEL 2.3 MG/DL (1.8-2.4)
[2024-09-01 08:00] VITALS: BP 140/56; TEMP 97.7; O2SAT 93
[2024-09-01 10:39] LABS: HEMATOCRIT 25.4 % (36.0-47.0); HEMOGLOBIN 8.2 g/dl (12.0-15.5)
[2024-09-01] MEDS: BISACODYL 10MG SUPP PR SCH (14:00)
[2024-09-01] MEDS: SENOKOT S TAB PO SCH (16:07)
[2024-09-01 20:44] VITALS: BP 141/52; TEMP 98.6; O2SAT 92
[2024-09-02 04:00] VITALS: BP 142/54; TEMP 97.9; O2SAT 94
[2024-09-02 06:35] LABS: CALCIUM LEVEL 8.2 MG/DL (8.3-10.6); CREATININE FOR GFR 1.27 MG/DL (0.55-1.30); GLOMERULAR FILTRATION RATE 42.9 (>32); MAGNESIUM LEVEL 2.1 MG/DL (1.8-2.4); POTASSIUM SERUM 3.9 MMOL/L (3.5-5.1)
[2024-09-02 07:21] LABS: HEMATOCRIT 24.5 % (36.0-47.0); HEMOGLOBIN 8.1 g/dl (12.0-15.5)
[2024-09-02] MEDS: MAGNESIUM CITRATE 300ML BTL PO ONE (08:19)
[2024-09-02 12:00] VITALS: BP 139/67; TEMP 98.7; O2SAT 95
[2024-09-02 20:42] VITALS: BP 142/65; TEMP 99.3; O2SAT 94
[2024-09-03 03:21] VITALS: BP 137/51; TEMP 98.1; O2SAT 91
[2024-09-03 05:58] LABS: HEMATOCRIT 26.4 % (36.0-47.0); HEMOGLOBIN 8.5 g/dl (12.0-15.5)
[2024-09-03 06:23] LABS: CALCIUM LEVEL 8.7 MG/DL (8.3-10.6); CREATININE FOR GFR 1.37 MG/DL (0.55-1.30); GLOMERULAR FILTRATION RATE 39.3 (>32); MAGNESIUM LEVEL 2.5 MG/DL (1.8-2.4); POTASSIUM SERUM 4.2 MMOL/L (3.5-5.1)
[2024-09-03 11:19] VITALS: O2SAT 94
[2024-09-03 12:15] VITALS: BP 138/50; TEMP 97.5; O2SAT 92
[2024-09-03 20:11] VITALS: BP 137/47; TEMP 97.7; O2SAT 92
[2024-09-04 03:50] VITALS: BP 132/48; TEMP 97.3; O2SAT 93
[2024-09-04] MEDS ORDERED: PERCOCET PO (11:27)
[2024-09-04] MEDS ORDERED: ASPI81CH48 PO (11:27)
[2024-09-04] MEDS ORDERED: LIDO5TD TD (11:27)
[2024-09-04] MEDS ORDERED: CEFD300CAP PO (11:27)
[2024-09-04] MEDS ORDERED: CYCL5TAB PO (11:28)
[2024-09-04] MEDS ORDERED: IBUP-1114 PO (11:28)
[2024-09-05 04:00] VITALS: BP 139/47; TEMP 98.2; O2SAT 96
[2024-09-05 08:30] VITALS: BP 160/50; TEMP 97.5
[2024-09-05 09:10] VITALS: BP 146/51
== END 2024-09-05 13:32 | DRG 481 ==
LOC: M ED 21:47 → M ED INP 08-27 01:35 → M MSPAV 08-27 15:52
PROVIDERS: ADMIT Internal Medicine; ATTEND Student in an Organized Health Care Education/Training Program
PROC: B246ZZZ Ultrasonography of Right and Left Heart (ICD-10-PCS; 2024-08-27)
PROC: 0QS604Z Reposition Right Upper Femur with Internal Fixation Device, Open Approach (ICD-10-PCS; principal; 2024-08-28 12:00)
PROC: 30233N1 Transfusion of Nonautologous Red Blood Cells into Peripheral Vein, Percutaneous Approach (ICD-10-PCS; 2024-08-31)
DX: S72.141A Displaced intertrochanteric fracture of right femur, initial encounter for closed fracture (principal); D62 Acute posthemorrhagic anemia; N18.30 Chronic kidney disease, stage 3 unspecified; I12.9 Hypertensive chronic kidney disease with stage 1 through stage 4 chronic kidney disease, or unspecified chronic kidney disease; M10.9 Gout, unspecified; K21.9 Gastro-esophageal reflux disease without esophagitis; R00.1 Bradycardia, unspecified; E03.9 Hypothyroidism, unspecified; E87.6 Hypokalemia; Z66 Do not resuscitate; Z89.421 Acquired absence of other right toe(s); Z98.41 Cataract extraction status, right eye; Z98.42 Cataract extraction status, left eye; Z87.891 Personal history of nicotine dependence; E83.42 Hypomagnesemia; W18.30XA Fall on same level, unspecified, initial encounter; Y92.018 Other place in single-family (private) house as the place of occurrence of the external cause; Y93.89 Activity, other specified; Y99.8 Other external cause status; Z79.890 Hormone replacement therapy; Z79.899 Other long term (current) drug therapy; K59.03 Drug induced constipation; T40.2X5A Adverse effect of other opioids, initial encounter

== ENCOUNTER → 2024-09-10 | Outpatient (REF) ==
[~2024-09-10] MED LIST changes: +ASPI81CH48 PO; +CEFD300CAP PO; +CYCL5TAB PO; +IBUP-1114 PO; +LIDO5TD TD; +ONETAB33 PO; +PERCOCET PO
[2024-09-10 10:13] LABS: HEMATOCRIT 29.1 % (36.0-47.0); HEMOGLOBIN 9.2 g/dl (12.0-15.5); MEAN CORPUSCULAR HEMOGLOBIN 31.3 pg (27.0-33.0); MEAN CORPUSCULAR HGB CONC 31.6 g/dl (32.0-36.5); PLATELET COUNT, AUTOMATED 244 10^3/uL (150-450); RED BLOOD COUNT 2.94 10^6/uL (4.00-5.40); WHITE BLOOD COUNT 14.2 10^3/uL (4.0-10.0)
[2024-09-10 10:47] LABS: CALCIUM LEVEL 8.4 MG/DL (8.3-10.6); CREATININE FOR GFR 1.39 MG/DL (0.55-1.30); GLOMERULAR FILTRATION RATE 38.6 (>32); POTASSIUM SERUM 4.3 MMOL/L (3.5-5.1)
== END ==
PROVIDERS: ATTEND Physician Assistant
DX: S72.141D Displaced intertrochanteric fracture of right femur, subsequent encounter for closed fracture with routine healing (principal)

== ENCOUNTER → 2024-09-11 | Outpatient (REF) ==
[2024-09-11 18:17] LABS: HEMOGLOBIN 9.8 g/dl (12.0-15.5); MEAN CORPUSCULAR HEMOGLOBIN 31.6 pg (27.0-33.0); MEAN CORPUSCULAR HGB CONC 30.6 g/dl (32.0-36.5); MEAN CORPUSCULAR VOLUME 103.2 fl (80.0-96.0); PLATELET COUNT, AUTOMATED 300 10^3/uL (150-450); WHITE BLOOD COUNT 15.9 10^3/uL (4.0-10.0)
[2024-09-11 18:34] LABS: C REACTIVE PROTEIN QUANTITATIV 28.1 MG/DL (<1.0)
[2024-09-11 18:36] LABS: ALBUMIN 2.3 G/DL (3.2-5.2); BILIRUBIN,TOTAL 0.7 MG/DL (0.3-1.2); CALCIUM LEVEL 8.5 MG/DL (8.3-10.6); CREATININE FOR GFR 1.49 MG/DL (0.55-1.30); GLOMERULAR FILTRATION RATE 35.7 (>32); POTASSIUM SERUM 4.5 MMOL/L (3.5-5.1)
[2024-09-11 18:38] LABS: ERYTHROCYTE SEDIMENTATION RATE 75 mm/hr (0-30)
== END ==
PROVIDERS: ATTEND Physician Assistant
DX: D72.829 Elevated white blood cell count, unspecified (principal)

== ENCOUNTER → 2024-09-12 | Outpatient (REF) ==
[2024-09-12 08:15] LABS: HEMATOCRIT 28.6 % (36.0-47.0); HEMOGLOBIN 8.8 g/dl (12.0-15.5); MEAN CORPUSCULAR HEMOGLOBIN 31.1 pg (27.0-33.0); MEAN CORPUSCULAR HGB CONC 30.8 g/dl (32.0-36.5); MEAN CORPUSCULAR VOLUME 101.1 fl (80.0-96.0); PLATELET COUNT, AUTOMATED 253 10^3/uL (150-450); RED BLOOD COUNT 2.83 10^6/uL (4.00-5.40); WHITE BLOOD COUNT 11.5 10^3/uL (4.0-10.0)
[2024-09-12 08:27] LABS: ERYTHROCYTE SEDIMENTATION RATE 68 mm/hr (0-30)
[2024-09-12 08:48] LABS: BILIRUBIN,TOTAL 0.7 MG/DL (0.3-1.2); CALCIUM LEVEL 8.4 MG/DL (8.3-10.6); CREATININE FOR GFR 1.4 MG/DL (0.55-1.30); GLOMERULAR FILTRATION RATE 38.3 (>32); POTASSIUM SERUM 3.8 MMOL/L (3.5-5.1); TOTAL PROTEIN 5.5 G/DL (5.7-8.2)
== END ==
PROVIDERS: ATTEND Physician Assistant
DX: D72.829 Elevated white blood cell count, unspecified (principal)

== ENCOUNTER → 2024-09-15 | Outpatient (REF) | payer MEDICARE, OTHER | LOC: M SOG 07:21 → EDSTATUS 09:14 | PROVIDERS: ATTEND Orthopaedic Surgery | DX: Z47.89 Encounter for other orthopedic aftercare (principal); S72.141A Displaced intertrochanteric fracture of right femur, initial encounter for closed fracture; W18.30XA Fall on same level, unspecified, initial encounter; Y92.009 Unspecified place in unspecified non-institutional (private) residence as the place of occurrence of the external cause ==

== ENCOUNTER → 2024-09-15 | Outpatient (REF) ==
[2024-09-15 08:28] LABS: HEMOGLOBIN 8.9 g/dl (12.0-15.5); MEAN CORPUSCULAR HEMOGLOBIN 30.1 pg (27.0-33.0); MEAN CORPUSCULAR HGB CONC 29.7 g/dl (32.0-36.5); MEAN CORPUSCULAR VOLUME 101.4 fl (80.0-96.0); PLATELET COUNT, AUTOMATED 298 10^3/uL (150-450); RED BLOOD COUNT 2.96 10^6/uL (4.00-5.40); WHITE BLOOD COUNT 7.7 10^3/uL (4.0-10.0)
[2024-09-15 08:41] LABS: ERYTHROCYTE SEDIMENTATION RATE 86 mm/hr (0-30)
[2024-09-15 09:00] LABS: C REACTIVE PROTEIN QUANTITATIV 16.5 MG/DL (<1.0)
[2024-09-15 09:14] LABS: BILIRUBIN,TOTAL 0.6 MG/DL (0.3-1.2); CALCIUM LEVEL 8.7 MG/DL (8.3-10.6); CREATININE FOR GFR 1.28 MG/DL (0.55-1.30); GLOMERULAR FILTRATION RATE 42.5 (>32); POTASSIUM SERUM 3.8 MMOL/L (3.5-5.1); TOTAL PROTEIN 5.8 G/DL (5.7-8.2)
== END ==
PROVIDERS: ATTEND Physician Assistant
DX: D72.829 Elevated white blood cell count, unspecified (principal)

== ENCOUNTER → 2024-09-17 | Outpatient (REF) ==
[~2024-09-17] MED LIST changes: +ACET-897 PO; +ACET-907 PO; +ASPI-663 PO; +ASPI81TA26 PO; +BISA10SU27 PR; +FLEEENE12 PR; +LIDO5DIS41 TD; +MILKSUS3 PO; +OXYC1TAB23 PO
[2024-09-17 09:52] LABS: HEMATOCRIT 28.4 % (36.0-47.0); HEMOGLOBIN 8.7 g/dl (12.0-15.5); MEAN CORPUSCULAR HGB CONC 30.6 g/dl (32.0-36.5); MEAN CORPUSCULAR VOLUME 101.1 fl (80.0-96.0); PLATELET COUNT, AUTOMATED 262 10^3/uL (150-450); RED BLOOD COUNT 2.81 10^6/uL (4.00-5.40); WHITE BLOOD COUNT 14.5 10^3/uL (4.0-10.0)
[2024-09-17 10:23] LABS: CALCIUM LEVEL 8.9 MG/DL (8.3-10.6); CREATININE FOR GFR 1.34 MG/DL (0.55-1.30); GLOMERULAR FILTRATION RATE 40.3 (>32); POTASSIUM SERUM 4.1 MMOL/L (3.5-5.1)
== END ==
PROVIDERS: ATTEND Physician Assistant
DX: E78.5 Hyperlipidemia, unspecified (principal)

== ENCOUNTER → 2024-09-18 | Outpatient (REF) ==
[2024-09-18 13:30] LABS: HEMATOCRIT 29.2 % (36.0-47.0); HEMOGLOBIN 8.9 g/dl (12.0-15.5); MEAN CORPUSCULAR HEMOGLOBIN 30.8 pg (27.0-33.0); MEAN CORPUSCULAR HGB CONC 30.5 g/dl (32.0-36.5); PLATELET COUNT, AUTOMATED 279 10^3/uL (150-450); RED BLOOD COUNT 2.89 10^6/uL (4.00-5.40); WHITE BLOOD COUNT 24.1 10^3/uL (4.0-10.0)
[2024-09-18 13:42] LABS: ERYTHROCYTE SEDIMENTATION RATE 67 mm/hr (0-30)
[2024-09-18 13:53] LABS: C REACTIVE PROTEIN QUANTITATIV 24.2 MG/DL (<1.0)
[2024-09-18 13:55] LABS: CALCIUM LEVEL 8.9 MG/DL (8.3-10.6); CREATININE FOR GFR 1.38 MG/DL (0.55-1.30); POTASSIUM SERUM 3.9 MMOL/L (3.5-5.1)
== END ==
PROVIDERS: ATTEND Physician Assistant
DX: S72.91XD Unspecified fracture of right femur, subsequent encounter for closed fracture with routine healing (principal)

== ENCOUNTER 2024-09-19 10:36 | Inpatient (IN) | payer MEDICARE, OTHER ==
[~2024-09-19] VITALS: Ht 172.7 cm; Wt 81.8 kg
[~2024-09-19 10:36] MED LIST changes: -ACET-897 PO; -ACET-907 PO; -ASPI-663 PO; -ASPI81TA26 PO; -BISA10SU27 PR; -CYCL5TAB PO; +CYCL5TAB4 PO; -FLEEENE12 PR; -LIDO5DIS41 TD; -MILKSUS3 PO; -OXYC1TAB23 PO
[2024-09-19 11:27] LABS: VENOUS BASE EXCESS 1.7 (-2.0-2.0); VENOUS HCO3 26.2 MMOL/L (23.0-27.0); VENOUS O2 SATURATION 85.9 % (60.0-80.0); VENOUS PARTIAL PRESSURE CO2 40.4 mmHg (38.0-50.0); VENOUS PARTIAL PRESSURE O2 50.9 mmHg (30.0-50.0); VENOUS PH 7.429 UNITS (7.330-7.430); VENOUS STANDARD HCO3 25.8 MMOL/L; VENOUS TOTAL CO2 27.4 MMOL/L (24.0-28.0)
[2024-09-19 11:32] LABS: BASO % 0.1 % (0.0-1.0); EOS # 0.1 10^3/uL (0.0-0.5); EOS % 0.7 % (0.0-3.0); HEMATOCRIT 25.4 % (36.0-47.0); LYMPH # 0.4 10^3/uL (1.5-5.0); LYMPH % 2.8 % (24.0-44.0); MEAN CORPUSCULAR HGB CONC 31.5 g/dl (32.0-36.5); MEAN CORPUSCULAR VOLUME 98.4 fl (80.0-96.0); MONO # 0.9 10^3/uL (0.0-0.8); MONO % 5.7 % (2.0-8.0); NEUTROPHILS # 13.2 10^3/uL (1.5-8.5); NEUTROPHILS % 89.5 % (36.0-66.0); PLATELET COUNT, AUTOMATED 213 10^3/uL (150-450); RED BLOOD COUNT 2.58 10^6/uL (4.00-5.40); WHITE BLOOD COUNT 14.8 10^3/uL (4.0-10.0)
[2024-09-19 11:45] LABS: INR 1.32; PARTIAL THROMBOPLASTIN TIME 41.9 SECONDS (24.8-34.2); PROTHROMBIN TIME 16.7 SECONDS (12.5-14.5)
[2024-09-19 11:56] LABS: APPEARANCE, URINE HAZY (CLEAR); BACTERIA, URINE AUTO 1+ (NEGATIVE); BILIRUBIN, URINE AUTO NEGATIVE (NEGATIVE); BLOOD, URINE BLOOD NEGATIVE (NEGATIVE); COLOR, URINE YELLOW (YELLOW); GLUCOSE, URINE (UA) AUTO NEGATIVE (NEGATIVE); KETONE, URINE AUTO NEGATIVE (NEGATIVE); LEUKOCYTE ESTERASE, URINE AUTO NEGATIVE (NEGATIVE); MUCUS, URINE SMALL (NEGATIVE); NITRITE, URINE AUTO NEGATIVE (NEGATIVE); PROTEIN, URINE AUTO NEGATIVE (NEGATIVE); RBC, URINE AUTO 0 /HPF (0-3); SPECIFIC GRAVITY URINE AUTO 1.019 (1.002-1.035); SQUAMOUS EPITHELIAL CELL UR AU 1 /HPF (0-6); UROBILINOGEN, URINE AUTO 0.2 mg/dL (0.0-2.0); WBC, URINE AUTO 5 /HPF (0-3)
[2024-09-19 12:02] LABS: C REACTIVE PROTEIN QUANTITATIV 29.8 MG/DL (<1.0)
[2024-09-19 12:04] LABS: ALBUMIN 1.8 G/DL (3.2-5.2); BILIRUBIN,DIRECT 0.2 MG/DL (<0.4); BILIRUBIN,TOTAL 0.5 MG/DL (0.3-1.2); CALCIUM LEVEL 8.4 MG/DL (8.3-10.6); CREATININE FOR GFR 1.39 MG/DL (0.55-1.30); GLOMERULAR FILTRATION RATE 38.6 (>32); POTASSIUM SERUM 3.9 MMOL/L (3.5-5.1); TOTAL PROTEIN 5.7 G/DL (5.7-8.2)
[2024-09-19 12:06] LABS: ERYTHROCYTE SEDIMENTATION RATE 59 mm/hr (0-30)
[2024-09-19] MEDS ORDERED: ACET-897 PO (12:06)
[2024-09-19] MEDS ORDERED: ASPI-663 PO (12:06)
[2024-09-19] MEDS ORDERED: IBUP-1114 PO (12:06)
[2024-09-19] MEDS ORDERED: ACET-907 PO (12:06)
[2024-09-19] MEDS: cefTRIAXone SOD 2 GM in DEXTROSE 5% (D5W) ADV/MINI-BAG 50 ML IV ONE (12:06)
[2024-09-19] MEDS ORDERED: LIDO5DIS41 TD (12:06)
[2024-09-19] MEDS: NS 2,450 ML in IV 1 EA IV ONE (12:06)
[2024-09-19] MEDS ORDERED: OXYC1TAB23 PO (12:06)
[2024-09-19 12:11] LABS: PROCALCITONIN 0.5 ng/ml
[2024-09-19] MEDS ORDERED: BISA10SU27 PR (12:17)
[2024-09-19] MEDS ORDERED: MILKSUS3 PO (12:17)
[2024-09-19] MEDS ORDERED: ASPI81TA26 PO (12:17)
[2024-09-19] MEDS ORDERED: FLEEENE12 PR (12:17)
[2024-09-19] MEDS ORDERED: HOME MED LIST COMPLETE! XX SCH (12:20)
[2024-09-19] MEDS ORDERED: ISOVUE-370 76% 100ML VIAL As Ordered ONE (12:40)
[2024-09-19] MEDS ORDERED: ACETAMINOPHEN 325 MG TAB PO PRN (16:10)
[2024-09-19] MEDS ORDERED: VANCOMYCIN HCL IV ONE (16:10)
[2024-09-19] MEDS ORDERED: FLUID PLACE HOLDER IV ONE (16:10)
[2024-09-19] MEDS ORDERED: GLUCOSE 4 GM CHEW PO PRN (16:30)
[2024-09-19] MEDS ORDERED: GLUCAGON INJ 1MG VIAL SC PRN (16:30)
[2024-09-19] MEDS ORDERED: DEXTROSE 50% 50ML SYRINGE IV PRN (16:30)
[2024-09-19] MEDS: VANCOMYCIN 1,500 MG/300 ML IV BAG *LOAD IV ONE (17:00)
[2024-09-19 20:51] VITALS: BP 142/52; TEMP 97.9; O2SAT 93
[2024-09-19] MEDS: AZITHROMYCIN 250MG TABLET PO SCH (21:22)
[2024-09-19 23:27] VITALS: BP 127/42; TEMP 98.5; O2SAT 93
[2024-09-20] VITALS (7 sets, daily range): BP systolic 94–156; BP diastolic 42–56; TEMP 97.7–98.9; O2SAT 91–94
[2024-09-20 06:42] LABS: HEMATOCRIT 23.9 % (36.0-47.0); HEMOGLOBIN 7.3 g/dl (12.0-15.5); MEAN CORPUSCULAR HEMOGLOBIN 29.9 pg (27.0-33.0); MEAN CORPUSCULAR HGB CONC 30.5 g/dl (32.0-36.5); PLATELET COUNT, AUTOMATED 211 10^3/uL (150-450); RED BLOOD COUNT 2.44 10^6/uL (4.00-5.40); WHITE BLOOD COUNT 10.3 10^3/uL (4.0-10.0)
[2024-09-20 07:07] LABS: ALBUMIN 1.6 G/DL (3.2-5.2); BILIRUBIN,TOTAL 0.3 MG/DL (0.3-1.2); CALCIUM LEVEL 8.1 MG/DL (8.3-10.6); CREATININE FOR GFR 1.22 MG/DL (0.55-1.30); GLOMERULAR FILTRATION RATE 44.9 (>32); POTASSIUM SERUM 3.3 MMOL/L (3.5-5.1); TOTAL PROTEIN 5.5 G/DL (5.7-8.2)
[2024-09-20] MEDS: POTASSIUM CHLORIDE 10MEQ SR TABLET PO SCH (10:31)
[2024-09-20] MEDS: ENOXAPARIN 40MG/0.4ML SYRINGE (J1650 PER 10MG) SC SCH (10:31)
[2024-09-20] MEDS: cefTRIAXone SOD 1 GM in DEXTROSE 5% (D5W) ADV/MINI-BAG 50 ML IV SCH (12:56)
[2024-09-20] MEDS: SENNA 8.6 MG TAB (SENOKOT) PO SCH (21:10)
[2024-09-20] MEDS: MIRALAX *UNIT DOSE* 17GM PACKET PO SCH (21:10)
[2024-09-21] VITALS (7 sets, daily range): BP systolic 140–161; BP diastolic 57–61; TEMP 97.5–99; O2SAT 92–94
[2024-09-21] MEDS ORDERED: BISACODYL 10MG SUPP PR PRN (08:05)
[2024-09-21] MEDS ORDERED: MOM 30ML SUSPENSION UDC PO PRN (08:05)
[2024-09-21 08:35] LABS: HEMATOCRIT 25.1 % (36.0-47.0); HEMOGLOBIN 7.8 g/dl (12.0-15.5); MEAN CORPUSCULAR HEMOGLOBIN 29.9 pg (27.0-33.0); MEAN CORPUSCULAR HGB CONC 31.1 g/dl (32.0-36.5); MEAN CORPUSCULAR VOLUME 96.2 fl (80.0-96.0); PLATELET COUNT, AUTOMATED 209 10^3/uL (150-450); RED BLOOD COUNT 2.61 10^6/uL (4.00-5.40)
[2024-09-21 08:59] LABS: ALBUMIN 1.6 G/DL (3.2-5.2); BILIRUBIN,TOTAL 0.3 MG/DL (0.3-1.2); CALCIUM LEVEL 8.2 MG/DL (8.3-10.6); CREATININE FOR GFR 1.15 MG/DL (0.55-1.30); GLOMERULAR FILTRATION RATE 48.1 (>32); TOTAL PROTEIN 5.5 G/DL (5.7-8.2)
[2024-09-21] MEDS: METOPROLOL SUCC (TopROL XL) 50MG **XL** TAB PO SCH (09:49)
[2024-09-21] MEDS: ACETAMINOPHEN 500 MG TAB PO SCH (09:50)
[2024-09-21] MEDS: buPROPion **XL** TABLET 150MG (WELLBUTRIN XL) PO SCH (09:50)
[2024-09-21] MEDS: allopurinoL 100 MG TAB PO SCH (09:51)
[2024-09-21] MEDS: oxyBUTYnin *DITROPAN XL* 5 MG TABCR PO SCH (09:51)
[2024-09-21] MEDS: LEVOTHYROXINE 100MCG TABLET (0.1MG) PO SCH (09:52)
[2024-09-21] MEDS: ATORVASTATIN 20 MG TAB PO SCH (21:02)
[2024-09-22 04:41] VITALS: BP 141/54; TEMP 98.8; O2SAT 92
[2024-09-22 08:04] VITALS: BP 142/54; TEMP 98.1; O2SAT 94
[2024-09-22 09:10] LABS: HEMATOCRIT 24.5 % (36.0-47.0); HEMOGLOBIN 7.7 g/dl (12.0-15.5); MEAN CORPUSCULAR HGB CONC 31.4 g/dl (32.0-36.5); MEAN CORPUSCULAR VOLUME 95.3 fl (80.0-96.0); PLATELET COUNT, AUTOMATED 211 10^3/uL (150-450); RED BLOOD COUNT 2.57 10^6/uL (4.00-5.40); WHITE BLOOD COUNT 8.3 10^3/uL (4.0-10.0)
[2024-09-22 09:41] LABS: ALBUMIN 1.6 G/DL (3.2-5.2); BILIRUBIN,TOTAL 0.4 MG/DL (0.3-1.2); CALCIUM LEVEL 7.9 MG/DL (8.3-10.6); CREATININE FOR GFR 1.03 MG/DL (0.55-1.30); GLOMERULAR FILTRATION RATE 54.6 (>32); POTASSIUM SERUM 2.5 MMOL/L (3.5-5.1); TOTAL PROTEIN 5.6 G/DL (5.7-8.2)
[2024-09-22] MEDS: KCL 10MEQ/100ML SWI (KRUN) 10 MEQ in IV 1 EA IV SCH (10:38)
[2024-09-22 12:00] VITALS: BP 134/53; TEMP 97.3; O2SAT 94
[2024-09-22 16:00] VITALS: BP 131/54; TEMP 97; O2SAT 93
[2024-09-22 19:45] VITALS: BP 139/56; TEMP 97.7; O2SAT 93
[2024-09-22] MEDS: KCL 10MEQ/100ML SWI (KRUN) 10 MEQ in IV 1 EA IV ONE (22:22)
[2024-09-22 23:27] VITALS: BP 139/55; TEMP 97.4; O2SAT 94
[2024-09-23 04:00] VITALS: BP 135/55; TEMP 98.4; O2SAT 92
[2024-09-23] MEDS: POTASSIUM CHLORIDE 10MEQ SR TABLET PO SCH (06:44)
[2024-09-23] MEDS: KCL 10MEQ/100ML SWI (KRUN) 10 MEQ in IV 1 EA IV ONE (06:45)
[2024-09-23 07:36] LABS: BASO % 0.1 % (0.0-1.0); EOS # 0.1 10^3/uL (0.0-0.5); EOS % 1.7 % (0.0-3.0); HEMATOCRIT 25.8 % (36.0-47.0); HEMOGLOBIN 8.1 g/dl (12.0-15.5); LYMPH % 13.7 % (24.0-44.0); MEAN CORPUSCULAR HEMOGLOBIN 30.2 pg (27.0-33.0); MEAN CORPUSCULAR HGB CONC 31.4 g/dl (32.0-36.5); MEAN CORPUSCULAR VOLUME 96.3 fl (80.0-96.0); MONO # 0.6 10^3/uL (0.0-0.8); MONO % 8.1 % (2.0-8.0); NEUTROPHILS # 5.6 10^3/uL (1.5-8.5); NEUTROPHILS % 75.6 % (36.0-66.0); PLATELET COUNT, AUTOMATED 200 10^3/uL (150-450); RED BLOOD COUNT 2.68 10^6/uL (4.00-5.40); WHITE BLOOD COUNT 7.4 10^3/uL (4.0-10.0)
[2024-09-23 08:00] VITALS: BP 147/60; TEMP 98.4; O2SAT 93
[2024-09-23 12:00] VITALS: BP 130/54; TEMP 97.7; O2SAT 94
[2024-09-23] MEDS: LevoFLOXacin 750 MG TABLET PO SCH (12:17)
[2024-09-23 14:59] LABS: PERCENT SATURATION 7.3 % (13.2-45.0)
[2024-09-23 15:00] LABS: FERRITIN 1377.7 NG/ML (7.3-270.7); FOLATE 13.26 NG/ML (>5.4)
[2024-09-23 15:10] LABS: CALCIUM LEVEL 8.2 MG/DL (8.3-10.6); CREATININE FOR GFR 1.03 MG/DL (0.55-1.30); GLOMERULAR FILTRATION RATE 54.6 (>32); MAGNESIUM LEVEL 1.6 MG/DL (1.8-2.4); POTASSIUM SERUM 3.5 MMOL/L (3.5-5.1)
[2024-09-23 16:00] VITALS: BP 135/56; TEMP 98.4; O2SAT 94
[2024-09-23] MEDS: MAG SULF 1GM/100ML (MAG RUN) 1 GM in IV 1 EA IV SCH (16:07)
[2024-09-23] MEDS: FERROUS SULFATE 325MG TAB PO SCH (16:07)
[2024-09-23] MEDS: ACETAMINOPHEN 325 MG TAB PO PRN (18:34)
[2024-09-23] MEDS: POTASSIUM CHLORIDE 10MEQ SR TABLET PO ONE (20:43)
[2024-09-23 20:45] VITALS: BP 139/55; TEMP 98.1; O2SAT 92
[2024-09-24 00:17] VITALS: BP 140/52; TEMP 98.6; O2SAT 95
[2024-09-24 04:00] VITALS: BP 143/52; TEMP 98.6; O2SAT 93
[2024-09-24 06:37] LABS: BASO % 0.1 % (0.0-1.0); EOS # 0.1 10^3/uL (0.0-0.5); EOS % 1.2 % (0.0-3.0); HEMATOCRIT 25.9 % (36.0-47.0); LYMPH % 13.2 % (24.0-44.0); MEAN CORPUSCULAR HGB CONC 30.9 g/dl (32.0-36.5); MEAN CORPUSCULAR VOLUME 93.8 fl (80.0-96.0); MONO # 0.5 10^3/uL (0.0-0.8); MONO % 6.5 % (2.0-8.0); NEUTROPHILS # 5.7 10^3/uL (1.5-8.5); NEUTROPHILS % 77.5 % (36.0-66.0); PLATELET COUNT, AUTOMATED 199 10^3/uL (150-450); RED BLOOD COUNT 2.76 10^6/uL (4.00-5.40); WHITE BLOOD COUNT 7.3 10^3/uL (4.0-10.0)
[2024-09-24 07:00] LABS: CALCIUM LEVEL 8.1 MG/DL (8.3-10.6); CREATININE FOR GFR 1.05 MG/DL (0.55-1.30); GLOMERULAR FILTRATION RATE 53.4 (>32); MAGNESIUM LEVEL 2.1 MG/DL (1.8-2.4); POTASSIUM SERUM 3.4 MMOL/L (3.5-5.1)
[2024-09-24 08:11] VITALS: BP 144/53; TEMP 97.5; O2SAT 92
[2024-09-24] MEDS: POTASSIUM CHLORIDE 10MEQ SR TABLET PO ONE (09:57)
[2024-09-24 09:59] VITALS: BP 144/54
[2024-09-24] MEDS ORDERED: LEVO1TAB40 PO (10:40)
[2024-09-24] MEDS ORDERED: FERR1TAB8 PO (10:40)
== END 2024-09-24 11:25 | DRG 194 ==
LOC: M ED 10:36 → EDBD 10:36 → M ED INP 16:06 → M MS5PR 17:45
PROVIDERS: ADMIT Student in an Organized Health Care Education/Training Program; ATTEND Internal Medicine
DX: J18.9 Pneumonia, unspecified organism (principal); J90 Pleural effusion, not elsewhere classified; N39.0 Urinary tract infection, site not specified; N18.30 Chronic kidney disease, stage 3 unspecified; I12.9 Hypertensive chronic kidney disease with stage 1 through stage 4 chronic kidney disease, or unspecified chronic kidney disease; M10.9 Gout, unspecified; D50.0 Iron deficiency anemia secondary to blood loss (chronic); E03.9 Hypothyroidism, unspecified; B96.20 Unspecified Escherichia coli [E. coli] as the cause of diseases classified elsewhere; N39.41 Urge incontinence; S72.142D Displaced intertrochanteric fracture of left femur, subsequent encounter for closed fracture with routine healing; F39 Unspecified mood [affective] disorder; E78.5 Hyperlipidemia, unspecified; E87.6 Hypokalemia; Z66 Do not resuscitate; Z90.49 Acquired absence of other specified parts of digestive tract; Z89.421 Acquired absence of other right toe(s); Z98.41 Cataract extraction status, right eye; Z98.42 Cataract extraction status, left eye; Z87.891 Personal history of nicotine dependence; Z79.890 Hormone replacement therapy; Z79.899 Other long term (current) drug therapy; Z79.82 Long term (current) use of aspirin; Z86.16 Personal history of COVID-19

== ENCOUNTER → 2024-09-22 | Outpatient (REF) ==
[~2024-09-22] MED LIST changes: +ACET-897 PO; +ACET-907 PO; +ASPI-663 PO; +ASPI81TA26 PO; +BISA10SU27 PR; +FERR1TAB8 PO; +FLEEENE12 PR; +LEVO1TAB40 PO; +LIDO5DIS41 TD; +MILKSUS3 PO; +OXYC1TAB23 PO
== END ==
PROVIDERS: ATTEND Physician Assistant
DX: E78.5 Hyperlipidemia, unspecified (principal); Z53.9 Procedure and treatment not carried out, unspecified reason

== ENCOUNTER → 2024-09-24 | Outpatient (REF) | PROVIDERS: ATTEND Physician Assistant | DX: E78.5 Hyperlipidemia, unspecified (principal); Z53.9 Procedure and treatment not carried out, unspecified reason ==

== ENCOUNTER → 2024-09-27 | Outpatient (REF) | payer MEDICARE, OTHER ==
[2024-09-27 15:08] LABS: BASO % 0.2 % (0.0-1.0); HEMATOCRIT 28.5 % (36.0-47.0); HEMOGLOBIN 8.6 g/dl (12.0-15.5); LYMPH % 7.8 % (24.0-44.0); MEAN CORPUSCULAR HEMOGLOBIN 29.4 pg (27.0-33.0); MEAN CORPUSCULAR HGB CONC 30.2 g/dl (32.0-36.5); MEAN CORPUSCULAR VOLUME 97.3 fl (80.0-96.0); MONO # 0.9 10^3/uL (0.0-0.8); MONO % 6.5 % (2.0-8.0); NEUTROPHILS # 10.8 10^3/uL (1.5-8.5); PLATELET COUNT, AUTOMATED 275 10^3/uL (150-450); RED BLOOD COUNT 2.93 10^6/uL (4.00-5.40); WHITE BLOOD COUNT 13.2 10^3/uL (4.0-10.0)
[2024-09-27 15:37] LABS: ALBUMIN 2.1 G/DL (3.2-5.2); BILIRUBIN,TOTAL 0.6 MG/DL (0.3-1.2); CALCIUM LEVEL 8.2 MG/DL (8.3-10.6); CREATININE FOR GFR 1.22 MG/DL (0.55-1.30); GLOMERULAR FILTRATION RATE 44.9 (>32); POTASSIUM SERUM 3.7 MMOL/L (3.5-5.1); TOTAL PROTEIN 6.9 G/DL (5.7-8.2)
[2024-09-27 15:40] LABS: THYROID STIMULATING HORMONE 7.288 uIU/ML (0.55-4.78)
== END ==
PROVIDERS: ATTEND Nurse Practitioner Family
DX: R41.0 Disorientation, unspecified (principal)

== ENCOUNTER → 2024-09-29 | Outpatient (REF) ==
[2024-09-29 09:14] LABS: BASO % 0.3 % (0.0-1.0); EOS % 0.6 % (0.0-3.0); HEMATOCRIT 26.6 % (36.0-47.0); HEMOGLOBIN 8.1 g/dl (12.0-15.5); LYMPH # 0.9 10^3/uL (1.5-5.0); LYMPH % 13.1 % (24.0-44.0); MEAN CORPUSCULAR HEMOGLOBIN 29.6 pg (27.0-33.0); MEAN CORPUSCULAR HGB CONC 30.5 g/dl (32.0-36.5); MEAN CORPUSCULAR VOLUME 97.1 fl (80.0-96.0); MONO # 0.6 10^3/uL (0.0-0.8); NEUTROPHILS # 5.3 10^3/uL (1.5-8.5); NEUTROPHILS % 75.4 % (36.0-66.0); PLATELET COUNT, AUTOMATED 232 10^3/uL (150-450); RED BLOOD COUNT 2.74 10^6/uL (4.00-5.40)
[2024-09-29 09:48] LABS: CALCIUM LEVEL 7.8 MG/DL (8.3-10.6); CREATININE FOR GFR 1.08 MG/DL (0.55-1.30); GLOMERULAR FILTRATION RATE 51.7 (>32); POTASSIUM SERUM 3.1 MMOL/L (3.5-5.1)
== END ==
PROVIDERS: ATTEND Internal Medicine
DX: E87.6 Hypokalemia (principal)

== ENCOUNTER → 2024-10-01 | Outpatient (REF) ==
[2024-10-01 08:56] LABS: HEMATOCRIT 25.9 % (36.0-47.0); HEMOGLOBIN 7.9 g/dl (12.0-15.5); MEAN CORPUSCULAR HEMOGLOBIN 29.3 pg (27.0-33.0); MEAN CORPUSCULAR HGB CONC 30.5 g/dl (32.0-36.5); MEAN CORPUSCULAR VOLUME 95.9 fl (80.0-96.0); PLATELET COUNT, AUTOMATED 223 10^3/uL (150-450); WHITE BLOOD COUNT 7.2 10^3/uL (4.0-10.0)
[2024-10-01 09:59] LABS: CALCIUM LEVEL 7.8 MG/DL (8.3-10.6); CREATININE FOR GFR 1.06 MG/DL (0.55-1.30); GLOMERULAR FILTRATION RATE 52.8 (>32); POTASSIUM SERUM 2.9 MMOL/L (3.5-5.1)
== END ==
PROVIDERS: ATTEND Physician Assistant
DX: E78.5 Hyperlipidemia, unspecified (principal)

== ENCOUNTER → 2024-10-06 | Outpatient (REF) ==
[2024-10-06 13:09] LABS: HEMATOCRIT 32.5 % (36.0-47.0); HEMOGLOBIN 9.7 g/dl (12.0-15.5); MEAN CORPUSCULAR HEMOGLOBIN 29.3 pg (27.0-33.0); MEAN CORPUSCULAR HGB CONC 29.8 g/dl (32.0-36.5); MEAN CORPUSCULAR VOLUME 98.2 fl (80.0-96.0); PLATELET COUNT, AUTOMATED 323 10^3/uL (150-450); RED BLOOD COUNT 3.31 10^6/uL (4.00-5.40); WHITE BLOOD COUNT 11.7 10^3/uL (4.0-10.0)
[2024-10-06 13:44] LABS: CREATININE FOR GFR 1.1 MG/DL (0.55-1.30); GLOMERULAR FILTRATION RATE 50.6 (>32)
== END ==
PROVIDERS: ATTEND Internal Medicine
DX: E87.6 Hypokalemia (principal)

== ENCOUNTER → 2024-10-08 | Outpatient (REF) ==
[2024-10-08 13:43] LABS: BASO % 0.3 % (0.0-1.0); EOS # 0.3 10^3/uL (0.0-0.5); EOS % 2.2 % (0.0-3.0); HEMATOCRIT 30.7 % (36.0-47.0); HEMOGLOBIN 9.2 g/dl (12.0-15.5); LYMPH # 1.1 10^3/uL (1.5-5.0); LYMPH % 9.5 % (24.0-44.0); MEAN CORPUSCULAR HEMOGLOBIN 29.6 pg (27.0-33.0); MEAN CORPUSCULAR VOLUME 98.7 fl (80.0-96.0); MONO # 0.7 10^3/uL (0.0-0.8); MONO % 6.2 % (2.0-8.0); NEUTROPHILS # 9.3 10^3/uL (1.5-8.5); NEUTROPHILS % 80.8 % (36.0-66.0); PLATELET COUNT, AUTOMATED 290 10^3/uL (150-450); RED BLOOD COUNT 3.11 10^6/uL (4.00-5.40); WHITE BLOOD COUNT 11.6 10^3/uL (4.0-10.0)
[2024-10-08 14:14] LABS: CREATININE FOR GFR 1.18 MG/DL (0.55-1.30); GLOMERULAR FILTRATION RATE 46.7 (>32); POTASSIUM SERUM 4.6 MMOL/L (3.5-5.1)
== END ==
PROVIDERS: ATTEND Physician Assistant
DX: R05.9 Cough, unspecified (principal)

== ENCOUNTER → 2024-10-08 | Outpatient (REF) | PROVIDERS: ATTEND Physician Assistant | DX: R05.9 Cough, unspecified (principal) ==

== ENCOUNTER → 2024-10-09 | Outpatient (REF) ==
[2024-10-09 13:44] LABS: BASO % 0.4 % (0.0-1.0); EOS # 0.3 10^3/uL (0.0-0.5); EOS % 3.5 % (0.0-3.0); HEMATOCRIT 29.6 % (36.0-47.0); HEMOGLOBIN 8.9 g/dl (12.0-15.5); LYMPH # 1.6 10^3/uL (1.5-5.0); LYMPH % 20.8 % (24.0-44.0); MEAN CORPUSCULAR HEMOGLOBIN 29.5 pg (27.0-33.0); MEAN CORPUSCULAR HGB CONC 30.1 g/dl (32.0-36.5); MONO # 0.7 10^3/uL (0.0-0.8); MONO % 9.5 % (2.0-8.0); NEUTROPHILS % 64.5 % (36.0-66.0); PLATELET COUNT, AUTOMATED 265 10^3/uL (150-450); RED BLOOD COUNT 3.02 10^6/uL (4.00-5.40); WHITE BLOOD COUNT 7.8 10^3/uL (4.0-10.0)
[2024-10-09 14:13] LABS: CALCIUM LEVEL 8.9 MG/DL (8.3-10.6); CREATININE FOR GFR 1.17 MG/DL (0.55-1.30); GLOMERULAR FILTRATION RATE 47.1 (>32); POTASSIUM SERUM 4.5 MMOL/L (3.5-5.1)
== END ==
PROVIDERS: ATTEND Physician Assistant
DX: R06.02 Shortness of breath (principal)

== ENCOUNTER → 2024-10-13 | Outpatient (REF) ==
[2024-10-13 09:36] LABS: HEMOGLOBIN 8.7 g/dl (12.0-15.5); MEAN CORPUSCULAR HEMOGLOBIN 30.4 pg (27.0-33.0); MEAN CORPUSCULAR HGB CONC 31.1 g/dl (32.0-36.5); MEAN CORPUSCULAR VOLUME 97.9 fl (80.0-96.0); PLATELET COUNT, AUTOMATED 214 10^3/uL (150-450); RED BLOOD COUNT 2.86 10^6/uL (4.00-5.40); WHITE BLOOD COUNT 7.9 10^3/uL (4.0-10.0)
[2024-10-13 09:54] LABS: CALCIUM LEVEL 8.7 MG/DL (8.3-10.6); CREATININE FOR GFR 1.24 MG/DL (0.55-1.30); GLOMERULAR FILTRATION RATE 44.1 (>32)
== END ==
PROVIDERS: ATTEND Physician Assistant
DX: J90 Pleural effusion, not elsewhere classified (principal)

== ENCOUNTER → 2024-10-14 | Outpatient (REF) | PROVIDERS: ATTEND Internal Medicine | DX: J90 Pleural effusion, not elsewhere classified (principal); J98.11 Atelectasis; R05.9 Cough, unspecified ==

== ENCOUNTER → 2024-10-15 | Outpatient (REF) ==
[2024-10-15 09:15] LABS: HEMATOCRIT 32.8 % (36.0-47.0); HEMOGLOBIN 9.8 g/dl (12.0-15.5); MEAN CORPUSCULAR HEMOGLOBIN 29.3 pg (27.0-33.0); MEAN CORPUSCULAR HGB CONC 29.9 g/dl (32.0-36.5); MEAN CORPUSCULAR VOLUME 98.2 fl (80.0-96.0); PLATELET COUNT, AUTOMATED 239 10^3/uL (150-450); RED BLOOD COUNT 3.34 10^6/uL (4.00-5.40); WHITE BLOOD COUNT 9.2 10^3/uL (4.0-10.0)
[2024-10-15 09:47] LABS: CALCIUM LEVEL 9.4 MG/DL (8.3-10.6); CREATININE FOR GFR 1.31 MG/DL (0.55-1.30); GLOMERULAR FILTRATION RATE 41.4 (>32)
== END ==
PROVIDERS: ATTEND Physician Assistant
DX: I50.9 Heart failure, unspecified (principal)

== ENCOUNTER → 2024-10-20 | Outpatient (REF) ==
[2024-10-20 12:05] LABS: HEMOGLOBIN 10.7 g/dl (12.0-15.5); MEAN CORPUSCULAR HEMOGLOBIN 30.3 pg (27.0-33.0); MEAN CORPUSCULAR HGB CONC 30.6 g/dl (32.0-36.5); MEAN CORPUSCULAR VOLUME 99.2 fl (80.0-96.0); PLATELET COUNT, AUTOMATED 248 10^3/uL (150-450); RED BLOOD COUNT 3.53 10^6/uL (4.00-5.40); WHITE BLOOD COUNT 8.8 10^3/uL (4.0-10.0)
[2024-10-20 12:34] LABS: CALCIUM LEVEL 9.6 MG/DL (8.3-10.6); CREATININE FOR GFR 1.35 MG/DL (0.55-1.30); POTASSIUM SERUM 3.9 MMOL/L (3.5-5.1)
== END ==
PROVIDERS: ATTEND Physician Assistant
DX: I50.9 Heart failure, unspecified (principal)

== ENCOUNTER → 2024-10-21 | Outpatient (REF) | PROVIDERS: ATTEND Internal Medicine | DX: R91.8 Other nonspecific abnormal finding of lung field (principal); R05.9 Cough, unspecified ==

== ENCOUNTER → 2024-10-21 | Outpatient (REF) | PROVIDERS: ATTEND Physician Assistant | DX: R05.9 Cough, unspecified (principal) ==

== ENCOUNTER → 2024-10-22 | Outpatient (REF) ==
[2024-10-22 10:00] LABS: BASO # 0.1 10^3/uL (0.0-0.2); EOS # 0.4 10^3/uL (0.0-0.5); HEMATOCRIT 34.8 % (36.0-47.0); HEMOGLOBIN 10.6 g/dl (12.0-15.5); LYMPH # 1.8 10^3/uL (1.5-5.0); LYMPH % 18.9 % (24.0-44.0); MEAN CORPUSCULAR HEMOGLOBIN 30.3 pg (27.0-33.0); MEAN CORPUSCULAR HGB CONC 30.5 g/dl (32.0-36.5); MEAN CORPUSCULAR VOLUME 99.4 fl (80.0-96.0); MONO # 0.6 10^3/uL (0.0-0.8); MONO % 5.9 % (2.0-8.0); NEUTROPHILS # 6.4 10^3/uL (1.5-8.5); PLATELET COUNT, AUTOMATED 222 10^3/uL (150-450); WHITE BLOOD COUNT 9.3 10^3/uL (4.0-10.0)
[2024-10-22 10:27] LABS: CALCIUM LEVEL 9.7 MG/DL (8.3-10.6); CREATININE FOR GFR 1.24 MG/DL (0.55-1.30); GLOMERULAR FILTRATION RATE 44.1 (>32); POTASSIUM SERUM 3.6 MMOL/L (3.5-5.1)
== END ==
PROVIDERS: ATTEND Physician Assistant
DX: J98.11 Atelectasis (principal)

== ENCOUNTER → 2024-10-27 | Outpatient (REF) | PROVIDERS: ATTEND Physician Assistant | DX: R06.02 Shortness of breath (principal); R06.2 Wheezing; Z53.9 Procedure and treatment not carried out, unspecified reason ==

== ENCOUNTER → 2024-10-28 | Outpatient (REF) | PROVIDERS: ATTEND Internal Medicine | DX: R05.9 Cough, unspecified (principal); Z53.9 Procedure and treatment not carried out, unspecified reason ==

== ENCOUNTER → 2024-10-28 | Outpatient (REF) | payer MEDICARE, OTHER | PROVIDERS: ATTEND Internal Medicine | DX: R05.9 Cough, unspecified (principal) ==

== ENCOUNTER → 2024-10-29 | Outpatient (REF) ==
[2024-10-29 13:20] LABS: HEMATOCRIT 32.5 % (36.0-47.0); HEMOGLOBIN 10.1 g/dl (12.0-15.5); MEAN CORPUSCULAR HEMOGLOBIN 30.8 pg (27.0-33.0); MEAN CORPUSCULAR HGB CONC 31.1 g/dl (32.0-36.5); MEAN CORPUSCULAR VOLUME 99.1 fl (80.0-96.0); PLATELET COUNT, AUTOMATED 205 10^3/uL (150-450); RED BLOOD COUNT 3.28 10^6/uL (4.00-5.40); WHITE BLOOD COUNT 8.4 10^3/uL (4.0-10.0)
[2024-10-29 13:53] LABS: CALCIUM LEVEL 9.8 MG/DL (8.3-10.6); CREATININE FOR GFR 1.25 MG/DL (0.55-1.30); GLOMERULAR FILTRATION RATE 43.7 (>32); POTASSIUM SERUM 3.5 MMOL/L (3.5-5.1)
== END ==
PROVIDERS: ATTEND Physician Assistant
DX: S72.141D Displaced intertrochanteric fracture of right femur, subsequent encounter for closed fracture with routine healing (principal)

== ENCOUNTER → 2024-11-03 | Outpatient (REF) | LOC: M PLAIMG 15:10 | PROVIDERS: ATTEND Internal Medicine | DX: J18.9 Pneumonia, unspecified organism (principal) ==

== ENCOUNTER → 2024-11-03 | Outpatient (REF) ==
[2024-11-03 10:28] LABS: HEMATOCRIT 30.5 % (36.0-47.0); HEMOGLOBIN 9.4 g/dl (12.0-15.5); MEAN CORPUSCULAR HEMOGLOBIN 31.4 pg (27.0-33.0); MEAN CORPUSCULAR HGB CONC 30.8 g/dl (32.0-36.5); PLATELET COUNT, AUTOMATED 157 10^3/uL (150-450); RED BLOOD COUNT 2.99 10^6/uL (4.00-5.40)
[2024-11-03 11:01] LABS: CALCIUM LEVEL 8.9 MG/DL (8.3-10.6); CREATININE FOR GFR 1.23 MG/DL (0.55-1.30); GLOMERULAR FILTRATION RATE 44.5 (>32); POTASSIUM SERUM 3.5 MMOL/L (3.5-5.1)
[2024-11-03 11:03] LABS: THYROID STIMULATING HORMONE 3.277 uIU/ML (0.55-4.78)
== END ==
PROVIDERS: ATTEND Physician Assistant
DX: S72.141D Displaced intertrochanteric fracture of right femur, subsequent encounter for closed fracture with routine healing (principal)

== ENCOUNTER → 2024-11-04 | Outpatient (REF) | PROVIDERS: ATTEND Physician Assistant | DX: J18.9 Pneumonia, unspecified organism (principal) ==

== ENCOUNTER → 2024-11-05 | Outpatient (REF) ==
[2024-11-05 10:12] LABS: CALCIUM LEVEL 9.8 MG/DL (8.3-10.6); CREATININE FOR GFR 1.25 MG/DL (0.55-1.30); GLOMERULAR FILTRATION RATE 43.7 (>32); POTASSIUM SERUM 3.8 MMOL/L (3.5-5.1)
== END ==
PROVIDERS: ATTEND Physician Assistant
DX: E86.0 Dehydration (principal)

== ENCOUNTER → 2024-12-01 | Outpatient (REF) | PROVIDERS: ATTEND Physician Assistant | DX: N18.9 Chronic kidney disease, unspecified (principal); Z53.9 Procedure and treatment not carried out, unspecified reason ==

== ENCOUNTER → 2024-12-08 | Outpatient (REF) | payer MEDICARE, OTHER ==
[2024-12-08 11:47] LABS: BASO # 0.1 10^3/uL (0.0-0.2); BASO % 0.9 % (0.0-1.0); EOS # 0.6 10^3/uL (0.0-0.5); EOS % 8.3 % (0.0-3.0); HEMATOCRIT 33.7 % (36.0-47.0); HEMOGLOBIN 10.8 g/dl (12.0-15.5); LYMPH # 1.7 10^3/uL (1.5-5.0); LYMPH % 25.9 % (24.0-44.0); MEAN CORPUSCULAR HEMOGLOBIN 32.3 pg (27.0-33.0); MEAN CORPUSCULAR VOLUME 100.9 fl (80.0-96.0); MONO # 0.6 10^3/uL (0.0-0.8); MONO % 8.5 % (2.0-8.0); NEUTROPHILS # 3.8 10^3/uL (1.5-8.5); NEUTROPHILS % 56.1 % (36.0-66.0); PLATELET COUNT, AUTOMATED 163 10^3/uL (150-450); RED BLOOD COUNT 3.34 10^6/uL (4.00-5.40); WHITE BLOOD COUNT 6.7 10^3/uL (4.0-10.0)
[2024-12-08 12:10] LABS: CALCIUM LEVEL 9.3 MG/DL (8.3-10.6); CREATININE FOR GFR 1.45 MG/DL (0.55-1.30); GLOMERULAR FILTRATION RATE 36.8 (>32); POTASSIUM SERUM 3.5 MMOL/L (3.5-5.1)
[2024-12-08 12:11] LABS: PERCENT SATURATION 25.5 % (13.2-45.0)
[2024-12-08 12:16] LABS: FERRITIN 159.9 NG/ML (7.3-270.7)
== END ==
LOC: M LAB REF 10:05
PROVIDERS: ATTEND Family Medicine
DX: D64.9 Anemia, unspecified (principal)

== ENCOUNTER → 2024-12-24 | Outpatient (CLI) | payer MEDICARE, OTHER | LOC: M SOG 08:10 | PROVIDERS: ATTEND Orthopaedic Surgery | DX: S72.141D Displaced intertrochanteric fracture of right femur, subsequent encounter for closed fracture with routine healing (principal) ==

== ENCOUNTER → 2025-01-26 | Outpatient (CLI) | payer MEDICARE, OTHER | LOC: M SOG 07:50 | PROVIDERS: ATTEND Orthopaedic Surgery | DX: S72.41 Unspecified condyle fracture of lower end of femur (principal) ==

== ENCOUNTER → 2025-02-05 | Outpatient (CLI) | payer MEDICARE, OTHER | LOC: M SOG 07:51 | PROVIDERS: ATTEND Orthopaedic Surgery | DX: S72.141G Displaced intertrochanteric fracture of right femur, subsequent encounter for closed fracture with delayed healing (principal) ==

== ENCOUNTER → 2025-02-17 | Outpatient (CLI) | payer MEDICARE, OTHER | LOC: M SOG 07:52 | PROVIDERS: ATTEND Orthopaedic Surgery | DX: S72.141G Displaced intertrochanteric fracture of right femur, subsequent encounter for closed fracture with delayed healing (principal) ==

== ENCOUNTER → 2025-09-01 | Outpatient (CLI) | payer MEDICARE, OTHER ==
[~2025-09-01] MED LIST changes: -BUPR-597 PO; +BUPR-766 PO; +LIDO1ADH93 TD; -LIDO5DIS41 TD; +SENN-225 PO; -SENO8.6T5 PO
== END ==
LOC: M SOG 07:21
PROVIDERS: ATTEND Orthopaedic Surgery
DX: S72.141D Displaced intertrochanteric fracture of right femur, subsequent encounter for closed fracture with routine healing (principal); M17.11 Unilateral primary osteoarthritis, right knee; W18.30XD Fall on same level, unspecified, subsequent encounter

== ENCOUNTER 2025-10-29 17:53 | Inpatient (IN) | payer MEDICARE, OTHER ==
[~2025-10-29] VITALS: Ht 170.2 cm; Wt 71.3 kg
[2025-10-29 18:49] LABS: BASO # 0.1 10^3/uL (0.0-0.2); BASO % 0.4 % (0.0-1.0); EOS # 0.4 10^3/uL (0.0-0.5); EOS % 3.4 % (0.0-3.0); LYMPH # 1.3 10^3/uL (1.5-5.0); LYMPH % 10.5 % (24.0-44.0); MONO # 0.8 10^3/uL (0.0-0.8); MONO % 6.7 % (2.0-8.0); NEUTROPHILS # 9.3 10^3/uL (1.5-8.5); NEUTROPHILS % 78.4 % (36.0-66.0); PLATELET COUNT, AUTOMATED 109 10^3/uL (150-450)
[2025-10-29 19:12] LABS: INR 1.32
[2025-10-29 19:14] LABS: ALT/SGPT 19.0 U/L (7.0-40); AST/SGOT 29.0 U/L (<34); CALCIUM LEVEL 8.7 MG/DL (8.3-10.6); CARBON DIOXIDE LEVEL 31.0 MMOL/L (20-31); CHLORIDE LEVEL 101.0 MMOL/L (98-107); CREATININE FOR GFR 1.44 MG/DL (0.55-1.30); GLOMERULAR FILTRATION RATE 36.1 (>32); POTASSIUM SERUM 3.4 MMOL/L (3.5-5.1); SODIUM LEVEL 141.0 MMOL/L (136-145)
[2025-10-29] MEDS: PERCOCET 5MG/325MG TAB PO ONE (22:35)
[2025-10-29] MEDS ORDERED: MOM 30 ML SUSPENSION UDC PO PRN (23:05)
[2025-10-29] MEDS ORDERED: POTA-149 PO (23:20)
[2025-10-29] MEDS ORDERED: HOME MED LIST COMPLETE! XX SCH (23:20)
[2025-10-30] MEDS ORDERED: ATORVASTATIN 20 MG TAB PO ONE
[2025-10-30] MEDS: ATORVASTATIN 20 MG TAB PO ONE (00:37)
[2025-10-30] MEDS: ASPIRIN ENTERIC 325 MG TAB PO SCH (00:37)
[2025-10-30] MEDS: POTASSIUM CHLORIDE 10MEQ SR TABLET PO SCH (00:37)
[2025-10-30] MEDS: LEVOTHYROXINE 100 MCG TABLET (0.1 MG) PO SCH (06:42)
[2025-10-30 08:07] LABS: ALT/SGPT 16.0 U/L (7.0-40); AST/SGOT 23.0 U/L (<34); CALCIUM LEVEL 8.7 MG/DL (8.3-10.6); CARBON DIOXIDE LEVEL 32.0 MMOL/L (20-31); CHLORIDE LEVEL 100.0 MMOL/L (98-107); CREATININE FOR GFR 1.34 MG/DL (0.55-1.30); GLOMERULAR FILTRATION RATE 39.3 (>32); MAGNESIUM LEVEL 1.8 MG/DL (1.8-2.4); POTASSIUM SERUM 3.5 MMOL/L (3.5-5.1); SODIUM LEVEL 141.0 MMOL/L (136-145)
[2025-10-30 08:37] LABS: CHOLESTEROL LEVEL 109.0 MG/DL (<200); CHOLESTEROL RISK RATIO 2.5 (<5); LDL CHOLESTEROL 40.7 MG/DL (<100); NON-HDL-C 65.5 MG/DL; TRIGLYCERIDES LEVEL 124.0 MG/DL (<150)
[2025-10-30 08:48] LABS: PLATELET COUNT, AUTOMATED 95 10^3/uL (150-450)
[2025-10-30] MEDS: VERAPAMIL 120MG SR TAB PO SCH (09:00)
[2025-10-30] MEDS: METOPROLOL SUCC. 50 MG *XL* TAB PO SCH (09:00)
[2025-10-30] MEDS: ENOXAPARIN 40 MG/0.4 ML SYRINGE (J1650 PER 10MG) SC SCH (09:41)
[2025-10-30 13:30] VITALS: BP 174/70; TEMP 98.2; O2SAT 95
[2025-10-30] MEDS: traMADol 50 MG TAB PO PRN (17:38)
[2025-10-30 19:08] LABS: MAGNESIUM LEVEL 1.6 MG/DL (1.8-2.4); POTASSIUM SERUM 3.3 MMOL/L (3.5-5.1)
[2025-10-30 19:09] LABS: CK-MB VALUE MASS 1.3 NG/ML (<3.6)
[2025-10-30 19:10] LABS: CPK CREATINE PHOSPHOKINASE 78.0 U/L (34-145); MB/CK RELATIVE INDEX 1.66 (< OR =4)
[2025-10-30] MEDS: ACETAMINOPHEN 325 MG TAB PO PRN (20:08)
[2025-10-30 20:19] VITALS: BP 152/69; TEMP 97.7; O2SAT 96
[2025-10-30] MEDS: LIDOCAINE 5% PATCH TD SCH (23:02)
[2025-10-30 23:52] VITALS: BP 153/67; TEMP 97.2; O2SAT 95
[2025-10-31] VITALS (7 sets, daily range): BP systolic 123–156; BP diastolic 59–70; TEMP 97.3–98.5; O2SAT 92–96
[2025-10-31 10:16] LABS: PLATELET COUNT, AUTOMATED 110 10^3/uL (150-450)
[2025-10-31] MEDS: DICLOFENAC EPOLAMINE 1.3% PATCH TOP SCH (10:23)
[2025-10-31] MEDS: MAG SULF 1GM/100ML (MAG RUN) 1 GM in IV 1 EA IV SCH (10:24)
[2025-10-31 10:49] LABS: CK-MB VALUE MASS 1.0 NG/ML (<3.6)
[2025-10-31 10:50] LABS: CPK CREATINE PHOSPHOKINASE 53.0 U/L (34-145); MB/CK RELATIVE INDEX 1.88 (< OR =4)
[2025-10-31 10:53] LABS: CALCIUM LEVEL 8.6 MG/DL (8.3-10.6); CARBON DIOXIDE LEVEL 30.0 MMOL/L (20-31); CHLORIDE LEVEL 101.0 MMOL/L (98-107); CREATININE FOR GFR 1.14 MG/DL (0.55-1.30); GLOMERULAR FILTRATION RATE 47.8 (>32); MAGNESIUM LEVEL 1.7 MG/DL (1.8-2.4); POTASSIUM SERUM 2.9 MMOL/L (3.5-5.1); SODIUM LEVEL 141.0 MMOL/L (136-145)
[2025-10-31] MEDS: POTASSIUM CHLORIDE 10MEQ SR TABLET PO ONE (11:19)
[2025-10-31] MEDS: ACETAMINOPHEN 500 MG TAB PO SCH (11:19)
[2025-10-31] MEDS: traMADol 50 MG TAB PO SCH (13:49)
[2025-10-31 14:55] LABS: KETONE, URINE AUTO RFX TRACE mg/dL (NEGATIVE); LEUKOCYTE ESTERASE UR AUTO RFX 1+ (NEGATIVE); MUCUS, URINE RFX SMALL (NEGATIVE); NITRITE, URINE AUTO RFX POSITIVE (NEGATIVE); RBC, URINE AUTO RFX 5 /HPF (0-3); SQUAM EPITHELIAL CELL UR AURFX 10 /HPF (0-6); WBC, URINE AUTO RFX 19 /HPF (0-3); YEAST LIKE CELL URINE AUTO RFX SMALL
[2025-11-01] VITALS (8 sets, daily range): BP systolic 119–152; BP diastolic 56–65; TEMP 97.2–97.9; O2SAT 92–97
[2025-11-01 06:09] LABS: PLATELET COUNT, AUTOMATED 117 10^3/uL (150-450)
[2025-11-01 09:19] LABS: CALCIUM LEVEL 8.3 MG/DL (8.3-10.6); CARBON DIOXIDE LEVEL 30.0 MMOL/L (20-31); CHLORIDE LEVEL 105.0 MMOL/L (98-107); CREATININE FOR GFR 1.18 MG/DL (0.55-1.30); GLOMERULAR FILTRATION RATE 45.8 (>32); MAGNESIUM LEVEL 2.1 MG/DL (1.8-2.4); POTASSIUM SERUM 3.7 MMOL/L (3.5-5.1); SODIUM LEVEL 142.0 MMOL/L (136-145)
[2025-11-01] MEDS ORDERED: traMADol 50 MG TAB PO PRN (10:05)
[2025-11-01] MEDS: ISOSORBIDE MONONITRATE 60 MG XR TAB PO SCH (10:11)
[2025-11-01] MEDS: amLODIPine 10 MG TAB PO ONE (10:11)
[2025-11-01] MEDS: POTASSIUM CHLORIDE 10MEQ SR TABLET PO SCH (10:12)
[2025-11-01] MEDS: MAG SULF 1GM/100ML (MAG RUN) 1 GM in IV 1 EA IV ONE (10:13)
[2025-11-01] MEDS: traMADol 50 MG TAB PO ONE (11:33)
[2025-11-01] MEDS: CALCIUM GLUCONATE 1,000 MG in DEXTROSE 5% (D5W) MINI-BAG PLU 100 ML IV ONE (11:34)
[2025-11-01 19:06] LABS: CALCIUM LEVEL 8.5 MG/DL (8.3-10.6); CARBON DIOXIDE LEVEL 26.0 MMOL/L (20-31); CHLORIDE LEVEL 108.0 MMOL/L (98-107); CREATININE FOR GFR 1.2 MG/DL (0.55-1.30); GLOMERULAR FILTRATION RATE 44.9 (>32); MAGNESIUM LEVEL 2.0 MG/DL (1.8-2.4); POTASSIUM SERUM 5.7 MMOL/L (3.5-5.1); SODIUM LEVEL 141.0 MMOL/L (136-145)
[2025-11-01] MEDS: oxyCODONE 10 MG CR TAB PO SCH (21:19)
[2025-11-02 03:58] VITALS: BP 124/60; TEMP 97; O2SAT 94
[2025-11-02 08:00] VITALS: BP 120/60; TEMP 97.2; O2SAT 95
[2025-11-02] MEDS ORDERED: MOM 30 ML SUSPENSION UDC PO PRN (08:20)
[2025-11-02] MEDS: amLODIPine 10 MG TAB PO SCH (08:30)
[2025-11-02] MEDS: SENNOSIDES/DOCUSATE SODIUM 8.6 MG/50MG TAB PO SCH (08:47)
[2025-11-02] MEDS ORDERED: DOCUSATE SODIUM 100 MG CAPSULE PO SCH (09:00)
[2025-11-02 12:00] VITALS: BP 118/58; TEMP 98.6; O2SAT 97
[2025-11-02 16:00] VITALS: BP 133/64; TEMP 97.6; O2SAT 97
[2025-11-02 19:46] VITALS: BP 125/58; TEMP 99; O2SAT 92
[2025-11-02] MEDS: cefTRIAXone SOD 1 GM in DEXTROSE 5% (D5W) ADV/MINI-BAG 50 ML IV SCH (20:47)
[2025-11-02 23:16] VITALS: TEMP 98.7
[2025-11-03 04:25] VITALS: BP 118/58; TEMP 98.3; O2SAT 95
[2025-11-03 07:40] LABS: ALT/SGPT 11.0 U/L (7.0-40); AST/SGOT 19.0 U/L (<34); CALCIUM LEVEL 8.7 MG/DL (8.3-10.6); CARBON DIOXIDE LEVEL 27.0 MMOL/L (20-31); CHLORIDE LEVEL 103.0 MMOL/L (98-107); CREATININE FOR GFR 1.39 MG/DL (0.55-1.30); GLOMERULAR FILTRATION RATE 37.7 (>32); MAGNESIUM LEVEL 2.0 MG/DL (1.8-2.4); POTASSIUM SERUM 4.4 MMOL/L (3.5-5.1); SODIUM LEVEL 139.0 MMOL/L (136-145)
[2025-11-03 08:53] VITALS: BP 117/59
[2025-11-03 11:59] VITALS: BP 125/60; TEMP 98.4; O2SAT 95
[2025-11-03 20:50] VITALS: BP 131/65; TEMP 98.8; O2SAT 95
[2025-11-04 03:22] VITALS: BP 138/48; TEMP 98.7; O2SAT 96
[2025-11-04 08:32] VITALS: BP 153/70
[2025-11-04] MEDS ORDERED: OXYC-517 PO (10:39)
[2025-11-04] MEDS ORDERED: CEFD300CAP PO (10:39)
[2025-11-04] MEDS ORDERED: COLA100C5 PO (10:39)
[2025-11-04] MEDS ORDERED: AMLO1TAB25 PO (10:39)
[2025-11-04] MEDS: FLUZONE HIGH DOSE (65+) 0.5 ML SYRINGE (25-26) IM.IMMUN ONE (11:08)
[2025-11-04] MEDS: PNEUMOC 21-VAL CONJ-DIP CRM/PF 0.5 ML SYRINGE IM.IMMUN ONE (11:09)
[2025-11-04] MEDS: MORPHINE 2 MG/ML 1 ML VIAL IV ONE (12:21)
== END 2025-11-04 13:23 | DRG 536 ==
LOC: EDBD 17:53 → M ED 17:53 → M ED INP 23:04 → M MSPAV 10-30 13:36
PROVIDERS: ADMIT Internal Medicine; ATTEND Internal Medicine
DX: S32.511A Fracture of superior rim of right pubis, initial encounter for closed fracture (principal); I47.19 Other supraventricular tachycardia; N39.0 Urinary tract infection, site not specified; S32.591A Other specified fracture of right pubis, initial encounter for closed fracture; N18.30 Chronic kidney disease, stage 3 unspecified; I12.9 Hypertensive chronic kidney disease with stage 1 through stage 4 chronic kidney disease, or unspecified chronic kidney disease; M10.9 Gout, unspecified; E03.9 Hypothyroidism, unspecified; R13.10 Dysphagia, unspecified; B96.20 Unspecified Escherichia coli [E. coli] as the cause of diseases classified elsewhere; W18.30XA Fall on same level, unspecified, initial encounter; Y92.009 Unspecified place in unspecified non-institutional (private) residence as the place of occurrence of the external cause; Y93.9 Activity, unspecified; E87.6 Hypokalemia; E83.42 Hypomagnesemia; Y99.8 Other external cause status; Z89.421 Acquired absence of other right toe(s); Z90.49 Acquired absence of other specified parts of digestive tract; Z98.41 Cataract extraction status, right eye; Z98.42 Cataract extraction status, left eye; Z87.891 Personal history of nicotine dependence; Z96.643 Presence of artificial hip joint, bilateral; Z79.890 Hormone replacement therapy; Z79.82 Long term (current) use of aspirin; Z79.899 Other long term (current) drug therapy

== ENCOUNTER → 2025-11-05 | Outpatient (REF) ==
[~2025-11-05] MED LIST changes: +AMLO1TAB25 PO; +COLA100C5 PO; +OXYC-517 PO; +POTA-149 PO
== END ==
PROVIDERS: ATTEND Physician Assistant
DX: I10 Essential (primary) hypertension (principal); Z53.8 Procedure and treatment not carried out for other reasons

== ENCOUNTER → 2025-11-11 | Outpatient (REF) | payer MEDICARE, OTHER | LOC: M SOG 07:31 → EDSTATUS 07:39 | PROVIDERS: ATTEND Orthopaedic Surgery | DX: Z53.9 Procedure and treatment not carried out, unspecified reason (principal) ==

== ENCOUNTER → 2025-11-18 | Outpatient (REF) ==
[2025-11-18 10:20] LABS: PLATELET COUNT, AUTOMATED 339 10^3/uL (150-450)
[2025-11-18 10:55] LABS: CALCIUM LEVEL 8.8 MG/DL (8.3-10.6); CARBON DIOXIDE LEVEL 30.0 MMOL/L (20-31); CHLORIDE LEVEL 99.0 MMOL/L (98-107); CREATININE FOR GFR 1.73 MG/DL (0.55-1.30); GLOMERULAR FILTRATION RATE 29.0 (>32); POTASSIUM SERUM 2.8 MMOL/L (3.5-5.1); SODIUM LEVEL 140.0 MMOL/L (136-145)
== END ==
PROVIDERS: ATTEND Physician Assistant
DX: I10 Essential (primary) hypertension (principal)